=== PATIENT | female | born 1960 | race Caucasian/White ===

== ENCOUNTER 2018-08-09 15:58 | Emergency (ER) | payer BC, MEDICAID, SELFPAY ==
--- NOTE | 2018-08-09 16:19 | W.ED.GENAD ---
Discharge Plan Disposition Patient Disposition: HOME Condition: Stable Discharge Details Chief Complaint: RespSymp Clinical Impression: CAP (community acquired pneumonia), Lung nodule Primary Care Provider: Deedee Gonzalez ED Provider: Aditya Guerra Home Meds and New Rx's Prescriptions: New levofloxacin 750 mg tablet 750 mg PO DAILY Qty: 6 RF: 0 Continue epinephrine 0.3 MG/0.3 ML auto-injector 0.3 mg IM ONCE Qty: 2 RF: 1 ascorbic acid (vitamin C) [Vitamin C] 500 MG tablet 500 mg PO DAILY Qty: 100 RF: 3 omega 5-rig-yir-fish oil [Fish Oil] 1,000 MG capsule 1,000 mg PO DAILY Qty: 100 RF: 3 Discharge Instructions Instructions: Community Acquired Pneumonia (ED) Additional Instructions: your xray showed lung nodules. You need to follow up with your primary care provider as they will need to order further imaging in the next year or so to make sure these aren't enlarging if you have worsening shortness of breath or severe weakness return to the emergency department Stand Alone Forms: Work Release Discharge Data Discharge Physician: Aditya Guerra Medical Decision Making 57 yo female who denies chronic med problems, who comes in with cough for about 13 days. Denies fevers or recent travel. She has had a runny nose as well. Has clear lungs on exam and appears well systemically so doubt pna but given length of time with cough will obtain xray to eval for pna. could also be post nasal drip vs bronchitis pt's xray shows small retrocardiac opacity and also lung nodules. Will start abx for possible pna and also advised she need sto f/u with pcp for f/u on nodule Differential Diagnosis uri, post nasal drip, pna Imaging Data Radiologic Study: Imaging: X-Ray My impression: retrocardiac opacity Radiologist's impression: retrocardiac opacity, lung nodules HPI General Mode of arrival: ambulatory. Date/Time Provider Initiated Documentation: 08/09/18 16:19. Limitations to Documentation: no limitations. Information obtained by: patient. History of Present Illness 57 year old F presents to the emergency department with the chief complaint of cough, described as moderate, with intensity rated at 4. Patient started experiencing this day(s) (13) and it has been constant. No exacerbating factors reported . Patient did receive the following treatments prior to arrival, none Related Data Home Medications Medication Instructions Recorded Confirmed ascorbic acid (vitamin C) [Vitamin 500 mg PO DAILY #100 tab 03/05/18 08/09/18 C] epinephrine 0.3 mg IM ONCE #2 pen 03/05/18 08/09/18 omega 4-ehm-ivj-fish oil [Fish Oil] 1,000 mg PO DAILY #100 cap 03/05/18 08/09/18 levofloxacin 750 mg PO DAILY #6 tab 08/09/18 Previous Rx's Medication Instructions Recorded ascorbic acid (vitamin C) [Vitamin 500 mg PO DAILY #100 tab 03/05/18 C] omega 8-mpo-naq-fish oil [Fish Oil] 1,000 mg PO DAILY #100 cap 03/05/18 levofloxacin 750 mg PO DAILY #6 tab 08/09/18 Allergies Allergy/AdvReac Type Severity Reaction Status Date / Time tree nut Allergy Severe Anaphylaxsi Unverified 08/09/18 16:29 s codeine AdvReac GI problems Unverified 08/09/18 16:29 cold Allergy Severe Anaphylaxsi Uncoded 08/09/18 16:29 s Review of Systems Review of Systems All systems reviewed & are unremarkable except as noted in HPI and below Constitutional Denies chills, Denies fever(s) and Denies weakness ENT Denies change in voice Cardiovascular Denies chest pain and Denies dyspnea Respiratory Denies dyspnea Gastrointestinal Denies abdominal pain, Denies nausea and Denies vomiting Genitourinary Denies dysuria Integumentary/Breasts Denies rash Neurologic Denies weakness Psychiatric Denies depression Endocrine Denies cold intolerance and Denies heat intolerance Allergic/Immunologic Reports urticaria PFSH Family History Materal Grandfather Alcohol abuse Myocardial infarction Sister Hyperlipidemia Medical History Kidney stones Social History Smoking/Tobacco Use Status: Former Tobacco Use Surgical History Appendectomy Breast Implants Colonoscopy - MAC (01/22/18) Discectomy L spine ? level EGD w/ BX (04/27/16) Left leg saphenous vein ablation (01/29/16) Tonsillectomy and adenoidectomy Exam Const General: no acute distress Orientation: alert [facility] Head: normal to inspection Ears: external ears normal General nose exam: external nose normal Mouth: moist mucous membranes Eyes General: appearance normal, both eyes and all related structures Neck Neck: normal visual inspection Resp Effort & Inspection: normal respiratory effort and able to speak in complete sentences Cardio Rate: regular rate Skin General skin exam: no rashes or lesions noted Neuro General: alert and oriented x3 Extrem General: normal to inspection Psych Mental Status: mental status grossly normal
[2018-08-09 16:25] VITALS: BP 118/83; PULSE 85; RESP 16; TEMP 37; O2SAT 98
--- NOTE | 2018-08-09 16:30 | DI.RAD_ITS ---
SYMPTOM/DIAGNOSIS: COUGH PA AND LATERAL CHEST: Comparison is made with 11/29/17. The cardiac and mediastinal contours have a normal appearance. A tiny nodule again projects over the left fifth rib and could represent a bone island or calcified nodule. The lungs are otherwise clear. IMPRESSION: No acute abnormality.
[2018-08-09 16:40] LABS: Tricyclic Antidepressants Negative (Negative)
[2018-08-09 16:41] LABS: *AMPHETAMINES SCREEN URINE Negative (Negative); *BARBITURATES SCREEN URINE Negative (Negative); *BENZODIAZEPINES SCREEN URINE Negative (Negative); Cannabinoids THC Negative (Negative); Cocaine Screen,Urine Negative (Negative); METHADONE URINE SCREEN Negative (Negative); OPIATES URINE SCREEN Negative (Negative)
[2018-08-09 17:10] LABS: Bilirubin Negative (Negative); Blood Trace-intact (Negative); Clarity Clear; Glucose Negative (Negative); Ketones Negative (Negative); Leukocyte Esterase Negative (Negative); Nitrite Negative (Negative); Specific Gravity 1.025 (1.005-1.025); Urobilinogen 0.2 EU/dL (Up TO 0.2); pH 5.5 (5-8)
[2018-08-09 17:16] LABS: Bacteria Moderate HPF (Negative); C & S Indicated? No/Sq. Contamination; Casts Negative LPF (Negative); Crystals Negative HPF (Negative); Epithelial Cells Moderate HPF (Negative); Mucus Negative (Negative); WBC 0-2 HPF (0-5)
[2018-08-09] MEDS: LEVOFLOXACIN 500 MG, LEVOFLOXACIN 250 MG 750 MG PO (17:20)
== END 2018-08-09 17:32 | disposition home or self-care (01) ==
PROVIDERS: Emergency Provider Emergency Medicine; PCP Nurse Practitioner
DX: J18.9 Pneumonia, unspecified organism (principal); R91.1 Solitary pulmonary nodule
CPT/HCPCS: 80307; 99283; 71046; 81003; 81015

== ENCOUNTER 2018-08-13 15:53 | Emergency (ER) | payer BC, MEDICAID, SELFPAY ==
[2018-08-13 16:59] VITALS: BP 142/100; PULSE 106; RESP 20; TEMP 36.6; O2SAT 96
--- NOTE | 2018-08-13 17:47 | DI.CT_ITS ---
SYMPTOMS/DIAGNOSIS: SHORTNESS OF BREATH PE CTA: CT angiography was performed with multi slice acquisition and multi planar and 3D reconstruction. The study was carried out with an injection of 100 cc of Omnipaque 350. There is no evidence of pulmonary embolic disease. Patchy ground-glass opacities are noted in the medial left lower lobe and could represent an acute pneumonia in the appropriate clinical setting. There is no pleural effusion. There is no pneumothorax. The heart is unremarkable. No acute bony abnormality is seen. The soft tissues are unremarkable. A 4 cm cyst is incidentally noted in the right hepatic lobe. SUMMARY: Multifocal patchy ground-glass densities within the medial left lower lobe, which likely represent an acute pneumonitis. No evidence of pulmonary embolic disease.
[2018-08-13] MEDS: Benzonatate 100 MG CAP 200 MG PO ×2 (18:02→20:56)
[2018-08-13 18:04] VITALS: RESP 4
[2018-08-13 18:04] LABS: Abs Immature Grans 0.01 k/cumm (0.0-0.09); Absolute Basophil Count 0.03 k/cumm (0.0-0.2); Absolute Eosinophil Count 0.17 k/cumm (0.0-0.7); Absolute Lymphocyte Count 1.94 k/cumm (1.2-3.4); Absolute Monocyte Count 0.45 k/cumm (0.11-0.7); Absolute Neutrophil Count 3.55 k/cumm (1.2-6.7); Basophils % 0.5; Eosinophils % 2.8; HCT 43.9 % (36.0-46.0); HGB 14.7 g/dL (12.0-15.5); Immature Grans % 0.2; Lymphocytes % 31.5; Mean Corp. HGB Concentration 33.5 g/dL (32.0-36.0); Mean Corpuscular Hemoglobin 30.9 pg (27.0-33.0); Mean Corpuscular Volume 92.4 fL (80-95); Mean Platelet Volume 10.7 fL (8.0-11.0); Monocytes % 7.3; Neutrophils % 57.7; Platelet Count 179 x1000/uL (130-400); RBC 4.75 m/cumm (4.00-5.20); RBC Distribution Width 13.2 % (11.7-14.6); White Blood Cell Count 6.15 k/cumm (4.4-10.8)
[2018-08-13] MEDS: Albuterol/Ipratropium 3 ML UPD VIAL UPD ×2 (18:04→20:36)
[2018-08-13 18:17] LABS: ALT 23 U/L (12-78); AST 14 U/L (15-37); Albumin 3.9 g/dL (3.4-5.0); Alkaline Phosphatase 71 U/L (46-116); Anion Gap 10.3 mmol/L (3-11); BUN 17 mg/dL (7-18); Bilirubin, Total 0.4 mg/dL (0.2-1.0); CO2 28.7 mmol/L (21.0-32.0); CREATININE 0.84 mg/dL (0.55-1.02); Calcium 9.4 mg/dL (8.5-10.1); Chloride 102 mmol/L (98-107); Glucose 103 mg/dL (70-100); Potassium 3.8 mmol/L (3.5-5.1); Sodium 141 mmol/L (136-145); Total Protein 7.8 g/dL (6.4-8.2)
--- NOTE | 2018-08-13 19:21 | DI.VRAD_ITS ---
EXAM: CT Angiography Chest With Intravenous Contrast CLINICAL HISTORY: 57 years old, female; Signs and symptoms; Cough and shortness of breath; Patient HX: Cough, SOB TECHNIQUE: Axial computed tomographic angiography images of the chest with intravenous contrast using pulmonary embolism protocol. MIP reconstructed images were created and reviewed. Coronal and sagittal reformatted images were created and reviewed. COMPARISON: SC XR CHEST 2V PA LATERAL 08/09/2018 4:23 PM FINDINGS: Pulmonary arteries: Unremarkable. No pulmonary embolism. Aorta: No acute findings. No thoracic aortic aneurysm. Lungs: Multifocal patchy and groundglass opacities within the medial left lower lobe consistent with pneumonia in the proper clinical setting. Mild left lower lobe bronchial wall thickening. Pleural space: Unremarkable. No significant effusion. No pneumothorax. Heart: Unremarkable. No cardiomegaly. No significant pericardial effusion. No evidence of RV dysfunction. Bones/joints: No acute fracture. No dislocation. Soft tissues: Unremarkable. Lymph nodes: Unremarkable. No enlarged lymph nodes. Liver: Cyst measuring 4 cm within the right hepatic lobe. IMPRESSION: Multifocal patchy and groundglass opacities within the medial left lower lobe consistent with pneumonia in the proper clinical setting. Dictated and Authenticated by: Juvenal Collins MD. Ordering:ZULMA REED MD
--- NOTE | 2018-08-13 20:25 | W.ED.GENAD ---
Discharge Plan Disposition Patient Disposition: HOME Condition: Stable Discharge Details Chief Complaint: RespSymp Clinical Impression: Pneumonia Primary Care Provider: Deedee Gonzalez ED Provider: Josef Hubbard Home Meds and New Rx's Prescriptions: New benzonatate 200 mg capsule 200 mg PO Q8H PRN PRN (Reason: cough) Qty: 30 RF: 0 prednisone 20 mg tablet 40 mg PO DAILY Qty: 8 RF: 0 doxycycline hyclate 100 mg tablet 100 mg PO BID Qty: 20 RF: 0 Continue epinephrine 0.3 MG/0.3 ML auto-injector 0.3 mg IM ONCE Qty: 2 RF: 1 ascorbic acid (vitamin C) [Vitamin C] 500 MG tablet 500 mg PO DAILY Qty: 100 RF: 3 omega 7-qxd-sbq-fish oil [Fish Oil] 1,000 MG capsule 1,000 mg PO DAILY Qty: 100 RF: 3 Discontinued levofloxacin 750 mg tablet 750 mg PO DAILY Qty: 6 RF: 0 Discharge Instructions Instructions: Pneumonia (ED) Additional Instructions: Please start antibiotics/doxycycline if not improving on steroids within 48 hours. Return immediately to the emergency department for any new or worsening symptoms otherwise follow-up with your primary care provider in 5 for reassessment. Stand Alone Forms: Work Release Referrals: Deedee Gonzalez, [employer] [Primary Care Provider] - 5 days (For reassessment) Discharge Data Discharge Date/Time-TO BE ENTERED AT DEPARTURE: 08/13/18 21:01 Medical Decision Making Patient presenting to the emergency department for chief complaint of cough for the last 2 weeks. Patient was seen in the emergency department 5 days ago and started on Levaquin for diagnosis of pneumonia. Of notation on review of records patient had some nodules also noted on x-ray that patient was recommended to follow-up with primary care for. Patient finished Levaquin today and has not had any signs of improvement. Physical exam reveals diffuse wheezing throughout all lung bennett with some diminished lower lung sounds. Given no improvement of symptoms in nodular finding on x-ray do feel that labs and CT imaging of the chest is warranted. Pending results patient given DuoNeb and Tessalon Perle to help with presenting symptoms. Vital signs are stable with patient being afebrile and not hypoxic but mildly tachycardic. Patient does have a dry nonproductive cough heard during examination Review of labs that show no leukocyte and otherwise nondiagnostic labs. CT imaging showed multifocal patchy groundglass opacities consistent with pneumonia. Patient reassessed after review of labs and imaging and she states that she does feel somewhat improved and that her cough has also gotten better after treatment. Lungs were reassessed and still showed diffuse wheezing so patient given another DuoNeb treatment, IV Solu-Medrol 125. Feel that patient may be having continued post pneumonia coughing spells but given that she has been on Levaquin for 5 days and has no loose leukocytosis and continued findings consistent with pneumonia I do not feel that patient immediately needs antibiotics but that may benefit from some steroids. Given though she is still symptomatic patient was prescribed doxycycline to begin if not improving over the next 24-48 hours and encouraged to return immediately for any new or worsening signs or symptoms. After discussion of diagnosis and plan of care patient has no further needs, questions, or concerns and states clear understanding to return to the emergency department for any worsening symptoms. Medical Records Medical records reviewed: Yes I reviewed the patient's medical records. Lab Data Lab results reviewed: Yes I reviewed the patient's lab results. HPI General Mode of arrival: ambulatory. Date/Time Provider Initiated Documentation: 08/13/18 17:30. Limitations to Documentation: no limitations. Information obtained by: patient. History of Present Illness 57 year old F presents to the emergency department with the chief complaint of cough, described as severe, with intensity rated at 7. and is localized to the head and chest. Patient started experiencing this week(s) (2) and it has been constant. No relieving factors improve symptom(s), No exacerbating factors reported . Patient did receive the following treatments prior to arrival, other (Finished levofloxacin today) Related Data Home Medications Medication Instructions Recorded Confirmed ascorbic acid (vitamin C) [Vitamin 500 mg PO DAILY #100 tab 03/05/18 08/13/18 C] epinephrine 0.3 mg IM ONCE #2 pen 03/05/18 08/13/18 omega 5-uyp-zgv-fish oil [Fish Oil] 1,000 mg PO DAILY #100 cap 03/05/18 08/13/18 benzonatate 200 mg PO Q8H PRN PRN #30 cap 08/13/18 doxycycline hyclate 100 mg PO BID #20 tab 08/13/18 prednisone 40 mg PO DAILY #8 tab 10/15/18 Previous Rx's Medication Instructions Recorded ascorbic acid (vitamin C) [Vitamin 500 mg PO DAILY #100 tab 03/05/18 C] omega 9-khz-bvu-fish oil [Fish Oil] 1,000 mg PO DAILY #100 cap 03/05/18 benzonatate 200 mg PO Q8H PRN PRN #30 cap 08/13/18 doxycycline hyclate 100 mg PO BID #20 tab 08/13/18 prednisone 40 mg PO DAILY #8 tab 08/13/18 Allergies Allergy/AdvReac Type Severity Reaction Status Date / Time tree nut Allergy Severe Anaphylaxsi Unverified 08/13/18 17:06 s codeine AdvReac GI problems Unverified 08/13/18 17:06 cold Allergy Severe Anaphylaxsi Uncoded 08/13/18 17:06 s General Stated Complaint: RespSymp BLAYNE: 4 Review of Systems Constitutional Denies body ache(s), Denies chills and Denies fever(s) Cardiovascular Denies chest pain, Denies diaphoresis, Denies syncope, Denies irregular heart rhythm, Reports dyspnea and Reports dyspnea on exertion Respiratory Reports chest congestion, Reports cough, Denies hemoptysis, Reports pain with cough, Reports dyspnea, Reports dyspnea on exertion and Reports wheezing Gastrointestinal Denies abdominal pain, Denies nausea and Denies vomiting Integumentary/Breasts Denies rash Neurologic Denies confusion, Denies syncope and Denies sensory deficit Psychiatric Denies confusion Allergic/Immunologic Reports wheezing PFSH Family History Materal Grandfather Alcohol abuse Myocardial infarction Sister Hyperlipidemia Medical History Kidney stones Social History Smoking/Tobacco Use Status: Former Tobacco Use Surgical History Appendectomy Breast Implants Colonoscopy - MAC (01/22/18) Discectomy L spine ? level EGD w/ BX (04/27/16) Left leg saphenous vein ablation (01/29/16) Tonsillectomy and adenoidectomy Exam Const General: cooperative, no acute distress and not ill appearing Orientation: alert, awake and oriented x3 HENMT Ears: hearing grossly normal bilaterally and TM's normal bilaterally General nose exam: external nose normal Mouth: moist mucous membranes Throat: posterior oropharynx normal Resp Effort & Inspection: normal respiratory effort, able to speak in complete sentences, audible wheezes, cough Quality of cough: dry and no respiratory distress Auscultation: wheezes scattered wheezes Cardio Rate: regular rate Rhythm: regular rhythm Heart Sounds: S1 normal and S2 normal Skin General skin exam: no rashes or lesions noted Neuro General: alert, awake, oriented x3, moves all extremities and no focal motor deficits Sensory Exam: no sensory deficits noted Course Vital Signs Temperature 36.6 C 08/13/18 16:59 Pulse 106 H 08/13/18 16:59 Respiratory Rate 20 08/13/18 16:59 Blood Pressure 142/100 H 08/13/18 16:59 Pulse Oximetry 96 08/13/18 16:59 Temperature 36.6 C 08/13/18 16:59 Temperature Source Temporal Artery Scan 08/13/18 16:59 Pulse 106 H 08/13/18 16:59 Respiratory Rate 20 08/13/18 16:59 Respiratory Effort 08/13/18 17:08 Respiratory Depth Normal 08/13/18 17:08 Blood Pressure 142/100 H 08/13/18 16:59 Pulse Oximetry 96 08/13/18 16:59 Oxygen Delivery Method Room Air 08/13/18 16:59 Oxygen Flow Rate 0 08/13/18 16:59 Lab/Test Results Lab/Test Results: Laboratory Tests Range/Units 08/13/18 08/13/18 17:53 17:53 WBC (4.4-10.8) k/cumm 6.15 RBC (4.00-5.20) m/cumm 4.75 Hgb (12.0-15.5) g/dL 14.7 Hct (36.0-46.0) % 43.9 MCV (80-95) fL 92.4 MCH (27.0-33.0) pg 30.9 MCHC (32.0-36.0) g/dL 33.5 RDW (11.7-14.6) % 13.2 Plt Count (130-400) x1000/uL 179 MPV (8.0-11.0) fL 10.7 Immature Gran % 0.2 Neutrophils % 57.7 Lymphocytes % 31.5 Monocytes % 7.3 Eosinophils % 2.8 Basophils % 0.5 Absolute Neutrophils (1.2-6.7) k/cumm 3.55 Absolute Lymphocytes (1.2-3.4) k/cumm 1.94 Absolute Monocytes (0.11-0.7) k/cumm 0.45 Absolute Eosinophils (0.0-0.7) k/cumm 0.17 Absolute Basophils (0.0-0.2) k/cumm 0.03 Sodium (136-145) mmol/L 141 Potassium (3.5-5.1) mmol/L 3.8 Chloride (98-107) mmol/L 102 Carbon Dioxide (21.0-32.0) mmol/L 28.7 Anion Gap (3-11) mmol/L 10.3 BUN (7-18) mg/dL 17 Creatinine (0.55-1.02) mg/dL 0.84 Estimated GFR/1.73 m2 (mL/min/1.73m2) >= 60.00 Glucose (70-100) mg/dL 103 H Calcium (8.5-10.1) mg/dL 9.4 Total Bilirubin (0.2-1.0) mg/dL 0.4 AST (15-37) U/L 14 L ALT (12-78) U/L 23 Alkaline Phosphatase (46-116) U/L 71 Total Protein (6.4-8.2) g/dL 7.8 Albumin (3.4-5.0) g/dL 3.9
[2018-08-13] MEDS: methylPREDNISolone SUCC 125 MG VIAL IVP (20:36)
== END 2018-08-13 21:01 | disposition home or self-care (01) ==
PROVIDERS: Emergency Provider Nurse Practitioner Family; PCP Nurse Practitioner
DX: J18.9 Pneumonia, unspecified organism (principal); Z87.891 Personal history of nicotine dependence
CPT/HCPCS: 36415; 71275; 80053; 94640; 96374; 99284; 85025; J2930; J7620

== ENCOUNTER 2018-12-18 07:07 | Outpatient (CLI) | payer BC, MEDICAID, SELFPAY ==
[2018-12-18 09:17] LABS: Cholesterol 180 mg/dL (50-200); HDL Cholesterol 57 mg/dL (40-60); LDL CHOLESTEROL 98 mg/dL (<100); TSH (W/Ref FT4) 2.66 uIU/mL (0.358-3.74); Triglyceride 120 mg/dL (30-150)
[2018-12-20 05:31] LABS: Vitamin D 25 Total 39.2 ng/ml (30-100)
== END 2018-12-18 07:27 ==
PROVIDERS: PCP Nurse Practitioner; Visit Provider Nurse Practitioner
DX: E55.9 Vitamin D deficiency, unspecified (principal); Z13.220 Encounter for screening for lipoid disorders; R63.5 Abnormal weight gain; F32.9 Major depressive disorder, single episode, unspecified; F41.9 Anxiety disorder, unspecified
CPT/HCPCS: 36415; 80061; 82306; 83721; 84443

== ENCOUNTER 2019-05-09 15:31 | Outpatient (REF) | payer BC, MEDICAID, SELFPAY | END 2019-05-09 15:51 | LOC: LBN 15:31 | PROVIDERS: PCP Nurse Practitioner; Visit Provider Nurse Practitioner | DX: R82.90 Unspecified abnormal findings in urine (principal) | CPT/HCPCS: 87086 ==

== ENCOUNTER 2019-08-12 15:53 | Outpatient (REF) | payer BC, MEDICAID, SELFPAY | END 2019-08-12 16:13 | LOC: LBN 15:53 | PROVIDERS: PCP Nurse Practitioner; Visit Provider Nurse Practitioner | DX: N39.0 Urinary tract infection, site not specified (principal); R31.0 Gross hematuria; R35.0 Frequency of micturition | CPT/HCPCS: 87077; 87086; 87186 ==

== ENCOUNTER 2019-09-03 06:24 | Inpatient (IN) | payer BC, MEDICAID, SELFPAY ==
[2019-09-03] VITALS (36 sets, daily range): BP systolic 85–103; BP diastolic 43–64; PULSE 79–105; RESP 1–27; TEMP 36.7–37.6; O2SAT 89–95
--- NOTE | 2019-09-03 06:43 | ED.GENADUL_ITS ---
Discharge Plan Disposition Patient Disposition: [facility] INPATIENT Condition: Stable Discharge Details Chief Complaint: Chest Pain Clinical Impression: URI (upper respiratory infection) Admit Date/Time: 09/05/19 10:14 Admit Provider: Milagros Dumont Attending Provider: Milagros Dumont Primary Care Provider: Deedee Gonzalez ED Provider: Tu Abdullahi Discharge Data Discharge Date/Time-TO BE ENTERED AT DEPARTURE: 09/03/19 12:52 Medical Decision Making <Goran Mckeon MD - Last Filed: 09/09/19 20:09> Patient presenting with pleuritic chest pain with associated intermittent fevers and cough for 2 weeks. Low O2 saturations with mild tachycardia and initial hypotension. Most likely pneumonia in nature. Consider PE. EKG with nonspecific ST changes noted. IV established and laboratory studies ordered. Fluids started. Chest x-ray done. Patient laboratory studies with normal white count. Lactic acid is only 2.4. Chemistries are reasonable. Very mild hypokalemia and hypomagnesemia. Troponin negative. Chest x-ray with questionable retrocardiac infiltrate. This blood pressure better with fluids. Continue with second liter of LR. Dose with IV ceftriaxone. D-dimer is positive. Chest x-ray not definitive. Will obtain CTA chest to rule out PE. Patient signed over to Dr. Abdullahi. ECG Data Attestation: I personally reviewed and interpreted this ECG (s) as follows: Prior ECG tracings: not available for review Interpretation: Sinus tachycardia rate 98. Normal axis and intervals. Nonspecific ST changes and slight depression laterally. <Tu Abdullahi MD - Last Filed: 09/03/19 12:48> Received signout from Dr. Mckeon. Please see his note regarding initial presentation, history of present illness, exam and plan of care. Patient had also noted hives that began this morning. They were antecedent to the administration of antibiotic. I did give her both Benadryl and acetaminophen for body ache and headache. Chest x-ray as noted with interstitial markings increased. CT scan does not show PE; CT does demonstrate bilateral pleural effusions and increased interstitial markings, suspicious for mild CHF. Her BNP is unremarkable. Influenza screening negative. Still has borderline low blood pressure, ongoing difficulty breathing with oxygenation 92% on room air. Likely she has a viral process with pleurisy, but given her findings, including elevated lactic acidosis, I do feel it is reasonab le to admit for observation. Discussed with Dr. Dumont. Lab Data Lab results reviewed: Yes I reviewed the patient's lab results. Labs: Laboratory Results - last 24 hr 09/03/19 09/03/19 09/03/19 06:47 06:47 06:47 WBC 8.19 RBC 4.44 Hgb 13.7 Hct 42.2 MCV 95.0 MCH 30.9 MCHC 32.5 RDW 13.2 Plt Count 185 MPV 9.4 Immature Gran % 0.9 Neutrophils % 93.6 Lymphocytes % 1.3 Monocytes % 2.3 Eosinophils % 1.8 Basophils % 0.1 Absolute Neutrophils 7.66 H Absolute Lymphocytes 0.11 L Absolute Monocytes 0.19 Absolute Eosinophils 0.15 Absolute Basophils 0.01 PT 9.7 INR 1.0 APTT 22.1 D-Dimer 4367 H Sodium 145 Potassium 3.3 L Chloride 107 Carbon Dioxide 28.8 Anion Gap 9.2 BUN 24 H Creatinine 1.01 Estimated GFR/1.73 m2 56.50 Glucose 128 H Lactate Calcium 8.8 Magnesium 1.7 L Total Bilirubin 0.9 AST 30 ALT 45 Alkaline Phosphatase 47 Troponin I < 0.05 Total Protein 6.7 Albumin 3.2 L 09/03/19 06:47 WBC RBC Hgb Hct MCV MCH MCHC RDW Plt Count MPV Immature Gran % Neutrophils % Lymphocytes % Monocytes % Eosinophils % Basophils % Absolute Neutrophils Absolute Lymphocytes Absolute Monocytes Absolute Eosinophils Absolute Basophils PT INR APTT D-Dimer Sodium Potassium Chloride Carbon Dioxide Anion Gap BUN Creatinine Estimated GFR/1.73 m2 Glucose Lactate 2.4 H* Calcium Magnesium Total Bilirubin AST ALT Alkaline Phosphatase Troponin I Total Protein Albumin HPI <Goran Mckeon MD - Last Filed: 09/09/19 20:09> General Mode of arrival: ambulatory . Date/Time Provider Initiated Documentation: 09/03/19 06:41 . Limitations to Documentation: no limitations . Information obtained by: patient, RN notes reviewed and old records reviewed . HPI Narrative: Patient presents to ED with bilateral pleuritic chest and back pain. Patient reports having a cough with intermittent fevers and general feeling of being unwell for the last 2 weeks. She did see primary care who felt she had viral illness. Over the last 24 hours she has developed bilateral pleuritic pain, nausea increased cough. This morning she woke with a rash mostly on her arms, some on her legs. She is unable to take a deep breath. She feels a little short of breath. She was unable to go to work and came here for evaluation. Related Data Home Medications Medication Instructions Recorded Confirmed ascorbic acid (vitamin C) [Vitamin 500 mg PO DAILY #100 tab 03/05/18 09/03/19 C] montelukast 10 mg tablet 10 mg PO QPM #30 tab 10/16/18 09/03/19 escitalopram oxalate 10 mg tablet 10 mg PO DAILY #30 tab 11/14/18 09/03/19 cetirizine 10 mg tablet 10 mg PO BID PRN 04/25/19 09/03/19 ranitidine HCl 150 mg tablet 150 mg PO BID PRN 04/25/19 09/03/19 hydrochlorothiazide 25 mg tablet 25 mg PO DAILY PRN #20 tab 05/09/19 09/03/19 hydroxyzine HCl 10 mg tablet See Rx Instructions PO QID PRN 05/09/19 09/03/19 #100 tab omega 8-vuk-pxb-fish oil 1,000 mg 1 cap PO DAILY #100 cap 08/12/19 09/03/19 (120 mg-180 mg) capsule Lactobacillus acidophilus 1,000 mmu cells PO DAILY #30 cap 09/06/19 albuterol sulfate 2 puff IH Q4H PRN #18 gm 09/06/19 benzonatate 1 - 2 mg PO TID #30 cap 09/06/19 cefuroxime axetil 500 mg PO BID #10 tab 09/06/19 doxycycline hyclate 100 mg PO BID #11 cap 09/06/19 guaifenesin [Mucinex] 600 mg PO BID PRN PRN #20 tab 09/06/19 Previous Rx's Medication Instructions Recorded ascorbic acid (vitamin C) [Vitamin 500 mg PO DAILY #100 tab 03/05/18 C] montelukast 10 mg tablet 10 mg PO QPM #30 tab 10/16/18 escitalopram oxalate 10 mg tablet 10 mg PO DAILY #30 tab 11/14/18 hydrochlorothiazide 25 mg tablet 25 mg PO DAILY PRN #20 tab 05/09/19 hydroxyzine HCl 10 mg tablet See Rx Instructions PO QID PRN 05/09/19 #100 tab omega 9-lvt-glh-fish oil 1,000 mg 1 cap PO DAILY #100 cap 10/14/19 (120 mg-180 mg) capsule Lactobacillus acidophilus 1,000 mmu cells PO DAILY #30 cap 09/06/19 albuterol sulfate 2 puff IH Q4H PRN #18 gm 09/06/19 benzonatate 1 - 2 mg PO TID #30 cap 09/06/19 cefuroxime axetil 500 mg PO BID #10 tab 09/06/19 doxycycline hyclate 100 mg PO BID #11 cap 09/06/19 guaifenesin [Mucinex] 600 mg PO BID PRN PRN #20 tab 09/06/19 Allergies Allergy/AdvReac Type Severity Reaction Status Date / Time hornet venom Allergy Severe Verified 09/03/19 06:33 tree nut Allergy Severe Anaphylaxsi Verified 09/03/19 06:33 s codeine AdvReac Unknown GI problems Verified 09/03/19 06:33 cold Allergy Severe Anaphylaxsi Uncoded 09/03/19 06:33 s General Stated Complaint: Chest Pain BLAYNE: 2 Review of Systems <Goran Mckeon MD - Last Filed: 09/09/19 20:09> Narrative: 08/12 Review of Systems completed and is negative except as stated above in HPI (Systems reviewed: Const, Eyes, ENT, Resp, CV, GI, , MSK, Skin, Neuro) PFSH <Goran Mckeon MD - Last Filed: 09/09/19 20:09> Medical History 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) Depression (Acute 02/22/18) 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) Edema (Acute 02/22/18) Genital herpes simplex (Acute 02/22/18) GERD (gastroesophageal reflux disease) (Acute 04/27/16) History of cold urticaria (Chronic) History of tobacco use disorder (Acute 03/05/18) Kidney stones Varicose veins of both lower extremities (Acute 02/22/18) Vitamin D deficiency (Acute 02/22/18) Social History Smoking/Tobacco Use Status: Former Tobacco Use Alcohol Intake: current Alcohol Intake frequency: holidays/special occasions only Drug use: Never Substance use type: does not use current occupation: [employer] Water heater temp set <120 deg: Yes Working smoke detector in home: Yes Fire extinguisher in home: Yes Carbon monox detector in home: Yes Do you feel safe at home: Yes Do you feel safe in your relationship?: Yes Exam <Goran Mckeon MD - Last Filed: 09/09/19 20:09> Narrative Exam Narrative: Vitals: Afebrile here. Slight tachycardia and hypotension on initial arrival. Low room air pulse oximetry. Const: Obese female in NAD. HEENT: NC/AT. Normal facial exam. Eyes: Normal conjunctiva and sclera. Neck: Supple. Trachea midline. Lungs: Normal respiratory effort. Lungs with some rhonchi bilateral bases but worse on left. Cor: RRR without murmur/gallop. Good radial pulses. GI: Soft. NT/ND. No guarding or rebound. Back: No CVAT. Neuro: A+O x 3. CN grossly in tact. Good strength and no focal deficit. Ext: No C/C/E. No deformity or tenderness. Skin: Warm and dry with faint macular/lacy erythematous rash involving arms. Course <Goran Mckeon MD - Last Filed: 09/09/19 20:09> Vital Signs Vital signs: Vital Signs Temperature 98.1 F 09/03/19 06:27 Pulse 105 H 09/03/19 06:27 Respiratory Rate 18 09/03/19 06:27 Pulse Oximetry 92 L 09/03/19 06:27 Temperature 98.1 F 09/03/19 06:27 Pulse 105 H 09/03/19 06:27 Respiratory Rate 18 09/03/19 06:27 Respiratory Effort 09/03/19 06:37 Respiratory Depth Normal 09/03/19 06:37 Respiratory Pattern Normal 09/03/19 06:37 Pulse Oximetry 92 L 09/03/19 06:27 Oxygen Delivery Method Room Air 09/03/19 06:27 Oxygen Flow Rate 0 09/03/19 06:27 Pain Level 9 09/03/19 06:37 Sign Out <Goran Mckeon MD - Last Filed: 09/09/19 20:09> Sign Out Data: Sign Out Comment: Patient receiving antibiotics and fluids. CT scan ordered. Patient signed over to Dr. Abdullahi for follow-up. Last updated by Goran Mckeon MD at 09/03/19 08:31
--- NOTE | 2019-09-03 06:55 | DI.RAD_ITS ---
EXAM: XR CHEST 2V PA LATERAL INDICATION: cough, chest pain. COMPARISON: No exams were available for comparison TECHNIQUE: 2D digital imaging was performed. FINDINGS: The heart size is normal. The aorta is mildly tortuous. There are mildly increased interstitial mar kings. No focal infiltrate is seen. There is minimal blunting of the costophrenic angles. There is mild vascular prominence and mildly increased interstitial markings could indicate mild pulmonary ed kayla. The spine shows mild degenerative changes. IMPRESSION: Question of mild CHF.
[2019-09-03 07:08] LABS: Abs Immature Grans 0.07 k/cumm (0.0-0.09); Absolute Basophil Count 0.01 k/cumm (0.0-0.2); Absolute Eosinophil Count 0.15 k/cumm (0.0-0.7); Absolute Lymphocyte Count 0.11 k/cumm (1.2-3.4); Absolute Monocyte Count 0.19 k/cumm (0.11-0.7); Absolute Neutrophil Count 7.66 k/cumm (1.2-6.7); Basophils % 0.1; Eosinophils % 1.8; HCT 42.2 % (36.0-46.0); HGB 13.7 g/dL (12.0-15.5); Immature Grans % 0.9; Lymphocytes % 1.3; Mean Corp. HGB Concentration 32.5 g/dL (32.0-36.0); Mean Corpuscular Hemoglobin 30.9 pg (27.0-33.0); Mean Platelet Volume 9.4 fL (8.0-11.0); Monocytes % 2.3; Neutrophils % 93.6; Platelet Count 185 x1000/uL (130-400); RBC 4.44 m/cumm (4.00-5.20); RBC Distribution Width 13.2 % (11.7-14.6); White Blood Cell Count 8.19 k/cumm (4.4-10.8)
[2019-09-03] MEDS: Lactated Ringers 1,000 ML 1000 ML IV ×2 (07:10→10:04)
[2019-09-03] MEDS: Ketorolac 15 MG/ML VIAL IVP (07:10)
[2019-09-03 07:12] LABS: Lactate 2.4 mmol/L (0.6-1.4)
[2019-09-03 07:25] LABS: PTT Activated 22.1 sec (21.0-31.4); Prothrombin Time 9.7 sec (9.3-11.0)
[2019-09-03 07:29] LABS: ALT 45 U/L (14-59); AST 30 U/L (15-37); Albumin 3.2 g/dL (3.4-5.0); Alkaline Phosphatase 47 U/L (46-116); Anion Gap 9.2 mmol/L (3-11); BUN 24 mg/dL (7-18); Bilirubin, Total 0.9 mg/dL (0.2-1.0); CO2 28.8 mmol/L (21.0-32.0); CREATININE 1.01 mg/dL (0.55-1.02); Calcium 8.8 mg/dL (8.5-10.1); Chloride 107 mmol/L (98-107); Glucose 128 mg/dL (70-100); Magnesium 1.7 mg/dL (1.8-2.4); Potassium 3.3 mmol/L (3.5-5.1); Sodium 145 mmol/L (136-145); Total Protein 6.7 g/dL (6.4-8.2)
[2019-09-03 07:40] LABS: D-Dimer 4367 ng/mlFEU (<500)
[2019-09-03 07:44] LABS: Troponin I < 0.05 ng/mL (0.00-0.06)
--- NOTE | 2019-09-03 07:57 | DI.VRAD_ITS ---
PROCEDURE INFORMATION: Exam: XR Chest, 2 Views Exam date and time: 09/03/2019 7:36 AM Clinical history: 59 years old, female; Cough TECHNIQUE: Imaging protocol: XR of the chest Views: 2 views. COMPARISON: CR CHEST 2 VIEWS PA,LAT 11/29/2017 9:24 AM FINDINGS: Lungs: Nonspecific diffuse interstitial prominence. Pleural space: Unremarkable. No pleural effusion. No pneumothorax. Heart/Mediastinum: Unremarkable. No cardiomegaly. Bones/joints: Unremarkable. IMPRESSION: Nonspecific diffuse interstitial prominence. Dictated and Authenticated by: Donta Rouse MD. Ordering:MARYLU Zimmer MD
[2019-09-03] MEDS: cefTRIAXone 1 GM/50 ML BAG IVPB (08:06)
--- NOTE | 2019-09-03 08:40 | DI.CT_ITS ---
EXAM: CT CHEST PE CTA CLINICAL HISTORY: pleuritic chest pain; low pulse ox; + d dimer TECHNIQUE: 100 cc Omnipaque [address] angiography was performed with multi-slice acquisition and multi-planar and/or 3D reconstruc tions. COMPARISON: CT chest PE CTA from 08/13/2018 FINDINGS: No pulmonary emboli or aortic dissection is seen. There is respiratory motion. There are dependent changes at the lung bases. There are increased interstitial markings and intralobular septal thicke david and tiny bilateral pleural effusions. There is mild left ventricular and left atrial enlargemen t. No focal pneumonia is seen. There are bilateral breast implants. A cyst is again noted in the p osterior aspect of the liver. There is an area of scarring at the posterior left upper pole of the l eft kidney. IMPRESSION: Small bilateral pleural effusions and increased interstitial markings, suspicious for mild CHF. Ther e is no evidence of pulmonary emboli, aortic dissection or focal pneumonia.
[2019-09-03] MEDS: Omnipaque 350 MG/ML 100 ML BTL IJ (08:43)
[2019-09-03] MEDS: Acetaminophen 500 MG TAB 975 MG PO (08:55)
[2019-09-03] MEDS: diphenhydrAMINE 50 MG/ML VIAL 25 MG IVP (08:55)
[2019-09-03 09:46] LABS: NT-proBNP 277 pg/mL
[2019-09-03] MEDS: Lactated Ringers 1,000 ML 150 ML IV (10:01)
[2019-09-03] MEDS: Doxycycline Hyclate 100 MG CAP PO (11:01)
--- NOTE | 2019-09-03 11:24 | NUR.NOTE ---
LR ordered at 1009 was not given. Patient has only received one LR 1000mL bolus and one LR at 150 mL/hr.
[2019-09-03 12:10] LABS: Procalcitonin 4.9 ng/mL
[2019-09-03] MEDS: Acetaminophen 325 MG TAB PO ×2 (13:29→17:37)
[2019-09-03] MEDS: Enoxaparin 40 MG/0.4 ML SYR SC (13:30)
[2019-09-03] MEDS: Benzonatate 100 MG CAP PO ×2 (13:30→19:31)
[2019-09-03] MEDS: POTASSIUM CHLORIDE/0.9% NACL 1,000 ML 75 MEQ IV (13:31)
[2019-09-03] MEDS: Albuterol 2.5 MG/3 ML INH SOLN VIAL UPD (15:36)
[2019-09-03] MEDS: MAGNESIUM SULFATE 2 GM/50 ML BAG IVPB (16:13)
[2019-09-03] MEDS: guaiFENesin 600 MG TABCR PO ×2 (16:20→19:31)
--- NOTE | 2019-09-03 17:08 | HPE_ITS ---
Date of service: 09/03/19 Time of Service: 17:08 Assessment and Plan Assessment and plan (1) Bronchitis: Status: Acute Assessment and plan: Likely with bacterial component in the setting of elevated lactate to 2.4 and procalcitonin of 4.9. Appears dehydrated on exam, continue IV fluids with potassium, ceftraixone and doxycyline. Consider viral process in the setting of fever and skin rash as well. Repeat procalcitonin and lactate in the morning. (2) Fever: Status: Acute Assessment and plan: Reports fever at home. Currently afebrile. Consider viral process versus bacterial process. Treat as above. Blood cultures are pending. Repeat labs in the morning. (3) Skin rash: Status: Acute Assessment and plan: Improved with Benadryl. Has history of cold urticaria, followed at [facility]. PRN Benadryl for hives. (4) Depression: Status: Acute Assessment and plan: Continue Lexapro. Hydroxyzine as needed for anxiety. (5) History of cold urticaria: Status: Chronic Assessment and plan: Followed at [facility]. Recommends cetirizine twice daily as needed, ranitidine 150 mg twice daily as needed if hives persist with cetirizine. (6) Hypokalemia: Status: Resolved Assessment and plan: Replete and monitor. Currently on IV fluids with potassium. (7) Hypomagnesemia: Status: Resolved Assessment and plan: Replete and monitor. (8) Chest pain: Status: Acute Assessment and plan: Sounds pleuritic by history. Initial troponin negative in the emergency department. Repeat troponin, if negative, no need to continue to trend. (9) DVT prophylaxis: Status: Acute Assessment and plan: Subcutaneous Lovenox. (10) Discharge planning issues: Status: Acute Assessment and plan: She is a full code. This case was discussed with Dr. Dumont who is in agreement. History of Present Illness History of Present Illness Chief Complaint: cough, shortness of breath, fatigue, malaise. Narrative: Mirtha Chang is a very pleasant 59 year old female with a history of Scleroderma, cold urticaria, GERD, depression, anxiety and remote smoking history who presented to the ED today with reports of a 2-week history of cough, pleuritic chest pain, intermittent fevers, fatigue and malaise. She also reported nausea, vomiting, diarrhea and skin rash. In the emergency department, her labs revealed a normal white blood cell count, an elevated lactic acid at 2.4, mild hypokalemia and hypomagnesemia, elevated d-dimer at 4367. Her EKG showed sinus rhythm with a rate or 98, Normal axis and intervals. Nonspecific ST changes and slight depression laterally. Her troponin was negative x1. She was initially hypotensive and tachycardic. Her oxygen saturation was mildly low at 92% on room air. She had a chest x-ray which revealed question of mild CHF, CT chest revealed small bilateral pleural effusions and increased interstitial markings, suspicious for mild CHF. No evidence of pulmonary emboli aortic dissection or focal pneumonia. The ER attending provider suspected a viral process with pleurisy, however, given her findings including elevated lactate, ongoing borderline low blood pressure, ongoing shortness of breath with an oxygen saturation of 92% on room air, he felt that it was appropriate to admit the patient for observation. She was admitted to the [facility] floor. Upon admission, she reports feeling less wheezy after having an nebulizer treatment. She continues to have a cough, productive of yellow sputum. She reports a headache. She continues to have discomfort under bilateral breasts, over her ribs and chest discomfort at her sternum and in her back which i ncreases with deep breathing and coughing. She reports that she has been eating and drinking well at home. She did have vomiting and diarrhea last night. She continues to have some nausea. She has been experiencing fevers intermittently for the last 2 weeks. She was seen in her PCP office 5 days ago for a rash on her hands. The rash then extended over body. She also describes having multipl e lesions in her mouth about a week ago they were very painful, the lesions have since resolved. She was treated for a urinary tract infection with Macrobid just prior to the onset of this illness. She denies any dysuria, hematuria, frequency or urgency at this time. She describes overall not feeling well and feeling fatigued. 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 Review of Systems All systems reviewed & are unremarkable except as noted in HPI and below PFSH Social History Smoking/Tobacco Use Status: Former Tobacco Use Alcohol Intake: current Alcohol Intake frequency: holidays/special occasions only Drug use: Never Substance use type: does not use current occupation: [employer] Water heater temp set <120 deg: Yes Working smoke detector in home: Yes Fire extinguisher in home: Yes Carbon monox detector in home: Yes Do you feel safe at home: Yes Do you feel safe in your relationship?: Yes Meds Home Medications and Allergies Home Medications Medication Instructions Recorded Confirmed Type ascorbic acid (vitamin C) [Vitamin 500 mg PO DAILY #100 tab 03/05/18 09/03/19 Rx C] albuterol sulfate 90 mcg/actuation 2 puff IH Q4H PRN #8.5 gm 08/16/18 09/03/19 Rx aerosol inhaler montelukast 10 mg tablet 10 mg PO QPM #30 tab 10/16/18 09/03/19 Rx escitalopram oxalate 10 mg tablet 10 mg PO DAILY #30 tab 11/14/18 09/03/19 Rx cetirizine 10 mg tablet 10 mg PO BID PRN 04/25/19 09/03/19 History ranitidine HCl 150 mg tablet 150 mg PO BID PRN 04/25/19 09/03/19 History hydrochlorothiazide 25 mg tablet 25 mg PO DAILY PRN #20 tab 05/09/19 09/03/19 Rx hydroxyzine HCl 10 mg tablet See Rx Instructions PO QID PRN 05/09/19 09/03/19 Rx #100 tab omega 0-sru-ytz-fish oil 1,000 mg 1 cap PO DAILY #100 cap 08/12/19 09/03/19 Rx (120 mg-180 mg) capsule Allergies Allergy/AdvReac Type Severity Reaction Status Date / Time hornet venom Allergy Severe Verified 09/03/19 06:33 tree nut Allergy Severe Anaphylaxsi Verified 09/03/19 06:33 s codeine AdvReac Unknown GI problems Verified 09/03/19 06:33 cold Allergy Severe Anaphylaxsi Uncoded 09/03/19 06:33 s Exam Narrative Exam Narrative: General: Middle-age female, laying in bed with head elevated, does not appear to be in acute distress but appears ill. Face is flushed. Answers questions appropriately, alert and oriented x3. HEENT: Atraumatic, pupils equal and round, EOMI mucous membranes slightly dry, no oral lesions noted. Neck: Supple, no JVD. Cardiovascular: Heart has regular rate and rhythm, no murmur appreciated. Respiratory: Respirations appear even and unlabored. Expiratory wheeze noted in right upper lung field, fine rales to bilateral bases, no coughing during exam. GI: Normoactive bowel sounds throughout, abdomen soft, nontender on palpation, no masses appreciated. Extremities: No clubbing, cyanosis or edema. Pedal pulses palpable bilaterally. Results Labs Result diagrams: 09/06/19 06:40 09/06/19 06:40 Labs: Laboratory Results - last 24 hr 09/03/19 09/03/19 09/03/19 06:47 06:47 06:47 WBC 8.19 RBC 4.44 Hgb 13.7 Hct 42.2 MCV 95.0 MCH 30.9 MCHC 32.5 RDW 13.2 Plt Count 185 MPV 9.4 Immature Gran % 0.9 Neutrophils % 93.6 Lymphocytes % 1.3 Monocytes % 2.3 Eosinophils % 1.8 Basophils % 0.1 Absolute Neutrophils 7.66 H Absolute Lymphocytes 0.11 L Absolute Monocytes 0.19 Absolute Eosinophils 0.15 Absolute Basophils 0.01 PT 9.7 INR 1.0 APTT 22.1 D-Dimer 4367 H Sodium 145 Potassium 3.3 L Chloride 107 Carbon Dioxide 28.8 Anion Gap 9.2 BUN 24 H Creatinine 1.01 Estimated GFR/1.73 m2 56.50 Glucose 128 H Lactate Calcium 8.8 Magnesium 1.7 L Total Bilirubin 0.9 AST 30 ALT 45 Alkaline Phosphatase 47 Troponin I < 0.05 NT-Pro-B Natriuret Pep Total Protein 6.7 Albumin 3.2 L Procalcitonin 09/03/19 09/03/19 09/03/19 06:47 06:47 06:47 WBC RBC Hgb Hct MCV MCH MCHC RDW Plt Count MPV Immature Gran % Neutrophils % Lymphocytes % Monocytes % Eosinophils % Basophils % Absolute Neutrophils Absolute Lymphocytes Absolute Monocytes Absolute Eosinophils Absolute Basophils PT INR APTT D-Dimer Sodium Potassium Chloride Carbon Dioxide Anion Gap BUN Creatinine Estimated GFR/1.73 m2 Glucose Lactate 2.4 H* Calcium Magnesium Total Bilirubin AST ALT Alkaline Phosphatase Troponin I NT-Pro-B Natriuret Pep 277 Total Protein Albumin Procalcitonin 4.9 Last Vital Signs Temp 36.9 C 09/03/19 15:00 Pulse 93 H 09/03/19 15:48 Resp 12 09/03/19 15:37 BP 97/61 L 09/03/19 15:00 Pulse Ox 94 L 09/03/19 15:35
[2019-09-03] MEDS: Normal Saline 1,000 ML 1000 ML IV (17:43)
[2019-09-03] MEDS: Albuterol/Ipratropium 3 ML UPD VIAL UPD (18:07)
[2019-09-03] MEDS: Montelukast 10 MG TAB PO (19:31)
[2019-09-03] MEDS: Ibuprofen 600 MG TAB PO (20:18)
[2019-09-03 20:55] LABS: Troponin I < 0.05 ng/mL (0.00-0.06)
[2019-09-03] MEDS: DOXYCYCLINE 100 MG in Normal Saline 100 ML IVPB (21:35)
[2019-09-04] VITALS (13 sets, daily range): BP systolic 109–123; BP diastolic 60–80; PULSE 72–90; RESP 1–20; TEMP 36.2–37.3; O2SAT 93–96
[2019-09-04] MEDS: Albuterol/Ipratropium 3 ML UPD VIAL UPD ×2 (00:01→06:47)
[2019-09-04] MEDS: POTASSIUM CHLORIDE/0.9% NACL 1,000 ML 150 MEQ IV (04:30)
[2019-09-04] MEDS: Ibuprofen 600 MG TAB PO (04:39)
[2019-09-04] MEDS: Acetaminophen 325 MG TAB PO ×3 (04:40→20:24)
[2019-09-04 07:27] LABS: Lactate 1.3 mmol/L (0.6-1.4)
[2019-09-04 07:36] LABS: Abs Immature Grans 0.05 k/cumm (0.0-0.09); Absolute Basophil Count 0.02 k/cumm (0.0-0.2); Absolute Eosinophil Count 0.63 k/cumm (0.0-0.7); Absolute Lymphocyte Count 1.19 k/cumm (1.2-3.4); Absolute Monocyte Count 0.25 k/cumm (0.11-0.7); Absolute Neutrophil Count 4.18 k/cumm (1.2-6.7); Basophils % 0.3; HCT 35.3 % (36.0-46.0); HGB 11.3 g/dL (12.0-15.5); Immature Grans % 0.8; Lymphocytes % 18.8; Mean Corpuscular Hemoglobin 30.8 pg (27.0-33.0); Mean Corpuscular Volume 96.2 fL (80-95); Mean Platelet Volume 9.5 fL (8.0-11.0); Neutrophils % 66.1; Platelet Count 173 x1000/uL (130-400); RBC 3.67 m/cumm (4.00-5.20); RBC Distribution Width 13.6 % (11.7-14.6); White Blood Cell Count 6.32 k/cumm (4.4-10.8)
[2019-09-04 07:42] LABS: BUN 13 mg/dL (7-18); CREATININE 0.74 mg/dL (0.55-1.02); Chloride 111 mmol/L (98-107); Glucose 105 mg/dL (70-100); Magnesium 2.2 mg/dL (1.8-2.4); Potassium 4.1 mmol/L (3.5-5.1); Sodium 145 mmol/L (136-145)
[2019-09-04 08:06] LABS: Procalcitonin 6.7 ng/mL
[2019-09-04] MEDS: Benzonatate 100 MG CAP PO ×3 (08:44→20:09)
[2019-09-04] MEDS: cefTRIAXone 1 GM/50 ML BAG IVPB (08:44)
[2019-09-04] MEDS: Escitalopram 10 MG TAB PO (08:44)
[2019-09-04] MEDS: guaiFENesin 600 MG TABCR PO ×2 (08:45→20:09)
[2019-09-04] MEDS: DOXYCYCLINE 100 MG in Normal Saline 100 ML IVPB ×2 (10:22→22:27)
[2019-09-04 10:53] LABS: LDH 156 U/L (81-234)
[2019-09-04] MEDS: Ketorolac 30 MG/ML VIAL IVP (11:39)
[2019-09-04] MEDS: Enoxaparin 40 MG/0.4 ML SYR SC (11:39)
[2019-09-04] MEDS: Normal Saline Flush 10 ML SYR IVP ×2 (11:40→16:41)
--- NOTE | 2019-09-04 13:02 | PGE_ITS ---
Documented by User: Kelin Parra NP 09/04/19 13:19 Date of Service Date of service: 09/04/19 Time of Service: 13:02 Assessment and Plan Assessment and plan (1) Bronchitis: Status: Acute Assessment and plan: Likely with bacterial component in the setting of elevated lactate to 2.4 and procalcitonin of 4.9 on admission. Lacated down to 1.3 today. Procalcitonin up to 6.7, unclear if other factors are contributing to the elevated procalcitonin. Possibly with autoimmune component. She is feeling better, WBC normal, no documented fevers. Continue antibiotics with IV ceftriaxone and doxycycline. Consult ID for recommendations. (2) Fever: Status: Acute Assessment and plan: Reports fever at home. Afebrile overnight. Consider viral process versus bacterial process. Treat as above. Blood cultures with NGTD. Repeat labs in the morning. (3) Skin rash: Status: Acute Assessment and plan: Improved with Benadryl. Has history of cold urticaria, followed at [facility]. PRN Benadryl for hives. (4) Depression: Status: Acute Assessment and plan: Continue Lexapro. Hydroxyzine as needed for anxiety. (5) History of cold urticaria: Status: Chronic Assessment and plan: [place] [facility] [place] Recommends cetirizine twice daily as needed, ranitidine 150 mg twice daily as needed if hives persist with cetirizine. (6) Hypokalemia: Status: Resolved Assessment and plan: Improved, potassium containing IV fluids discontinued. Continue to follow. (7) Hypomagnesemia: Status: Resolved Assessment and plan: Improved with supplementation, continue to monitor. (8) Chest pain: Status: Acute Assessment and plan: Sounds pleuritic by history. Troponin negative x2. (9) DVT prophylaxis: Status: Acute Assessment and plan: Subcutaneous Lovenox. (10) Discharge planning issues: Status: Acute Assessment and plan: She is a full code. This case was discussed with Dr. Dumont who is in agreement. Subjective Subjective Interval history since last seen: Mirtha reports that she is feeling mildly better. She has a headache. She continues to cough and have pain with deep breathing. She does not feel wheezy or short of breath. She has been afebrile overnight but she describes feeling hot and cold and having sweats. She denies chest pain/pressure, palpitations. She is eating and drinking without nausea, vomiting or diarrhea. The duonebs made her feel tremulous, she would like them changed to PRN. Exam Narrative Exam Narrative: General: Middle-age female, laying in bed with head elevated, does not appear to be in acute distress. Face is flushed. Answers questions appropriately, alert and oriented x3. HEENT: Atraumatic, pupils equal and round, EOMI mucous membranes slightly dry, no oral lesions noted. Neck: Supple, no JVD. Cardiovascular: Heart has regular rate and rhythm, no murmur appreciated. Respiratory: Respirations appear even and unlabored. Diminished lung sounds throughout. No wheezing or rales. GI: Normoactive bowel sounds throughout, abdomen soft, nontender on palpation, no masses appreciated. Extremities: Trace nonpitting edema to bilateral upper and lower extremities. No clubbing or cyanosis. Pedal pulses palpable bilaterally. Objective Objective Clinical Data: Abnormal lab results 09/04/19 09/04/19 Range/Units 07:17 07:17 RBC 3.67 L (4.00-5.20) m/cumm Hgb 11.3 L D (12.0-15.5) g/dL Hct 35.3 L (36.0-46.0) % MCV 96.2 H (80-95) fL Absolute Lymphocytes 1.19 L (1.2-3.4) k/cumm Chloride 111 H (98-107) mmol/L Glucose 105 H (70-100) mg/dL Calcium 8.0 L (8.5-10.1) mg/dL Vital Signs Temperature 36.7 C 09/04/19 07:00 Temperature Source Tympanic 09/04/19 07:00 Pulse 84 09/04/19 07:01 Pulse Rhythm Regular 09/04/19 08:53 Pulse 97 H 09/03/19 08:20 Respiratory Rate 18 09/04/19 07:00 Respiratory Effort Non-Labored 09/04/19 08:53 Respiratory Depth Normal 09/04/19 08:53 Respiratory Pattern Normal 09/04/19 08:53 Blood Pressure 109/69 09/04/19 07:00 Blood Pressure Mean 65 09/03/19 09:30 Pulse Oximetry 94 L 09/04/19 07:00 Oxygen Delivery Method Room Air 09/04/19 07:00 Oxygen Flow Rate 0 09/04/19 07:00 Pain Level 7 09/04/19 11:39 Comment 09/03/19 13:31 Intake & Output 09/03/19 09/04/19 09/04/19 23:59 11:59 23:59 Intake Total 1675 / 3725 2240 / 2240 Output Total 900 / 900 1000 / 1000 Balance 775 / 2825 1240 / 1240 Weight 104.326 kg Intake: IV 1675 / 3725 1999 / 1999 Oral 240 / 240 Output: Urine 900 / 900 1000 / 1000 Other: Urine Color Yellow Dark Justina Urine Appearance Clear Clear Urine Odor None Normal Voiding Methods Toilet Laboratory Results WBC 6.32 k/cumm (4.4-10.8) 09/04/19 07:17 RBC 3.67 m/cumm (4.00-5.20) L 09/04/19 07:17 Hgb 11.3 g/dL (12.0-15.5) L D 09/04/19 07:17 Hct 35.3 % (36.0-46.0) L 09/04/19 07:17 MCV 96.2 fL (80-95) H 09/04/19 07:17 MCH 30.8 pg (27.0-33.0) 09/04/19 07:17 MCHC 32.0 g/dL (32.0-36.0) 09/04/19 07:17 RDW 13.6 % (11.7-14.6) 09/04/19 07:17 Plt Count 173 x1000/uL (130-400) 09/04/19 07:17 MPV 9.5 fL (8.0-11.0) 09/04/19 07:17 Immature Gran % 0.8 09/04/19 07:17 Neutrophils % 66.1 09/04/19 07:17 Lymphocytes % 18.8 09/04/19 07:17 Monocytes % 4.0 09/04/19 07:17 Eosinophils % 10.0 09/04/19 07:17 Basophils % 0.3 09/04/19 07:17 Absolute Neutrophils 4.18 k/cumm (1.2-6.7) 09/04/19 07:17 Absolute Lymphocytes 1.19 k/cumm (1.2-3.4) L 09/04/19 07:17 Absolute Monocytes 0.25 k/cumm (0.11-0.7) 09/04/19 07:17 Absolute Eosinophils 0.63 k/cumm (0.0-0.7) 09/04/19 07:17 Absolute Basophils 0.02 k/cumm (0.0-0.2) 09/04/19 07:17 PT 9.7 sec (9.3-11.0) 09/03/19 06:47 INR 1.0 (0.9-1.1) 09/03/19 06:47 APTT 22.1 sec (21.0-31.4) 09/03/19 06:47 D-Dimer 4367 ng/mlFEU (<500) H 09/03/19 06:47 Sodium 145 mmol/L (136-145) 09/04/19 07:17 Potassium 4.1 mmol/L (3.5-5.1) D 09/04/19 07:17 Chloride 111 mmol/L (98-107) H 09/04/19 07:17 Carbon Dioxide 25.0 mmol/L (21.0-32.0) 09/04/19 07:17 Anion Gap 9.0 mmol/L (3-11) 09/04/19 07:17 BUN 13 mg/dL (7-18) D 09/04/19 07:17 Creatinine 0.74 mg/dL (0.55-1.02) 09/04/19 07:17 Estimated GFR/1.73 m2 >= 60.00 (mL/min/1.73m2) 09/04/19 07:17 Glucose 105 mg/dL (70-100) H 09/04/19 07:17 Lactate 1.3 mmol/L (0.6-1.4) 09/04/19 07:17 Calcium 8.0 mg/dL (8.5-10.1) L 09/04/19 07:17 Magnesium 2.2 mg/dL (1.8-2.4) 09/04/19 07:17 Total Bilirubin 0.9 mg/dL (0.2-1.0) 09/03/19 06:47 AST 30 U/L (15-37) 09/03/19 06:47 ALT 45 U/L (14-59) 09/03/19 06:47 Alkaline Phosphatase 47 U/L (46-116) 09/03/19 06:47 Lactate Dehydrogenase 156 U/L (81-234) 09/04/19 07:17 Troponin I < 0.05 ng/mL (0.00-0.06) 09/03/19 20:15 NT-Pro-B Natriuret Pep 277 pg/mL (-299) 09/03/19 06:47 Total Protein 6.7 g/dL (6.4-8.2) 09/03/19 06:47 Albumin 3.2 g/dL (3.4-5.0) L 09/03/19 06:47 Procalcitonin 6.7 ng/mL 09/04/19 07:17 Documented by User: Milagros Dumont MD 09/06/19 11:03
--- NOTE | 2019-09-04 14:57 | INITIAL_ITS ---
- If Service Date Differs Date of service: 09/04/19 Time of Service: 14:57 Care Management Initial Assess REASON FOR HOSPITALIZATION:: Acute bronchitis. PAST MEDICAL HISTORY/PAST SURGICAL HISTORY:: Medical History: Circumscribed scleroderma, Depression, Dermatographia, Edema, Genital herpes simplex, GERD (gastroesophageal reflux disease), History of cold urticaria, History of tobacco use disorder, Kidney stones. Varicose veins of both lower extremities, and Vitamin D deficiency. Surgical History: Appendectomy, Breast Implants Bilateral, Colonoscopy - MAC, Discectomy L spine ? level L5-S1, EGD w/ BX, Left leg saphenous vein ablation, and Tonsillectomy and adenoidectomy. PREVIOUS FUNCTIONAL STATUS/SOCIAL/FAMILY SUPPORTS:: Mirtha resides in [facility] with her three teenage children. 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 Mirtha drives, cooks, cleans, and is independent at baseline. She names as her supports a long-time partner, a sister, and her children. CURRENT FUNCTIONAL STATUS:: Mirtha is standing in her room when meets with her. She is pleasant and easily engages in conversation. She states when she woke up yesterday morning she had a rash and difficulty breathing, so she drove herself to the hospital. ADVANCE DIRECTIVES:: On file at [facility]; Jamin Gomez is agent. Has patient been provided with information about the portal?: No Did the patient sign up for the portal?: No CODE STATUS:: Full Code INSURANCE COVERAGE / FINANCIAL ISSUES:: [place] and [place] CURRENT HOME/COMMUNITY SERVICES/EQUIPMENT:: Mirtha reports she uses an epipen and an inhaler at home but has no other equipment or community services. PRIMARY CARE PHYSICIAN:: Deedee Gonzalez aprn, [facility] POTENTIAL DISCHARGE NEEDS:: Follow-up with primary care physician. PATIENT/FAMILY EDUCATION NEEDS:: Discharge plan, limitations, and follow-up plan of care, including Ask Me Three and self-management. ANTICIPATED BARRIERS TO DISCHARGE:: None anticipated at this time. TRANSPORTATION:: Mirtha's vehicle is parked in the hospital parking lot. Mirtha reports she will drive herself home when ready. PLAN:: Mirtha will be discharged home when medically cleared by provider. Anticipate no additional services needed at time of discharge. Mirtha will drive herself home when ready.
--- NOTE | 2019-09-04 15:31 | DI.RAD_ITS ---
EXAM: XR CHEST 2V PA LATERAL CLINICAL HISTORY: question of crackles TECHNIQUE: COMPARISON: No exams were available for comparison FINDINGS: The heart is mildly enlarged and has increased in size comparison with yesterday's examination. Mild increase in pulmonary interstitial markings since yesterday's examination. Small bilateral pleural effusions appear to be present increased from yesterday's study. Findings as described are suggestiv e mild CHF, slight interval worsening since yesterday's examination. There also question patchy increased radiodensity in retrocardiac portion of left lower lobe on the f rontal view, I cannot confirm this on the lateral view. IMPRESSION: Mildly increased CHF, left lower lobe infiltrate not excluded.
--- NOTE | 2019-09-04 15:59 | PHARADMIT ---
Admission Pharmacy Clinical Review Acute Bronchitis Code Status Full Code Current Weight 104.326 kg Renally Cleared and Narrow Therapeutic Index Meds CrCl~81ml/min QTc Value / Action Taken QTc 480 BP Control, Fever BP 110/71, afebrile Electrolytes reviewed Na 145, K+ 4.1 (up from 3.3), Mag 2.2 DVT Prophylaxis LMWH 40MG Opiate Usage / Scheduled Bowel Regimen Ordered Plt/SCr for Heparin / Enoxaparin Plt 173, Scr 0.74 INR for Warfarin H/H stable, WBC/Bands H/H 11.3/35.3 Antibiotic appropriateness Ceftriazone and Doxycycline Cultures and Sensitivities Blood culture - no growth Surgical ABX d/c within 24 hr DM control / Insulin Dosing Heart Failure (Check EF%) (RAMSES's, B-Block, Diuretics) hctz 25MG IV to PO Switch Home Meds Reviewed Yes - multiple antihistamines (prn) Home Meds Not Ordered HCTZ 25mg Comments Procalcitonin up to 6.7 today - possible autoimmune component
[2019-09-04] MEDS: Furosemide 20 MG/2 ML VIAL IVP (16:40)
[2019-09-04] MEDS: Ascorbic Acid 500 MG TAB PO (20:08)
[2019-09-04] MEDS: Montelukast 10 MG TAB PO (20:08)
[2019-09-05] VITALS (8 sets, daily range): BP systolic 104–133; BP diastolic 51–88; PULSE 65–78; RESP 14–18; TEMP 36.5–37; O2SAT 95–97
[2019-09-05 07:10] LABS: HCT 36.9 % (36.0-46.0); HGB 11.6 g/dL (12.0-15.5); Mean Corp. HGB Concentration 31.4 g/dL (32.0-36.0); Mean Corpuscular Hemoglobin 30.4 pg (27.0-33.0); Mean Corpuscular Volume 96.6 fL (80-95); Mean Platelet Volume 10.2 fL (8.0-11.0); Platelet Count 191 x1000/uL (130-400); RBC 3.82 m/cumm (4.00-5.20); RBC Distribution Width 13.6 % (11.7-14.6); White Blood Cell Count 4.22 k/cumm (4.4-10.8)
[2019-09-05 07:20] LABS: Anion Gap 7.7 mmol/L (3-11); BUN 13 mg/dL (7-18); CO2 27.3 mmol/L (21.0-32.0); CREATININE 0.75 mg/dL (0.55-1.02); Calcium 8.6 mg/dL (8.5-10.1); Chloride 108 mmol/L (98-107); Glucose 90 mg/dL (70-100); Potassium 4.2 mmol/L (3.5-5.1); Sodium 143 mmol/L (136-145)
[2019-09-05 07:48] LABS: Procalcitonin 4.3 ng/mL
[2019-09-05] MEDS: cefTRIAXone 1 GM/50 ML BAG IVPB (08:28)
[2019-09-05] MEDS: Normal Saline Flush 10 ML SYR IVP ×3 (08:29→22:26)
[2019-09-05] MEDS: Escitalopram 10 MG TAB PO (08:29)
[2019-09-05] MEDS: guaiFENesin 600 MG TABCR PO ×2 (08:29→20:22)
[2019-09-05] MEDS: Benzonatate 100 MG CAP PO ×3 (08:29→20:22)
[2019-09-05] MEDS: Ketorolac 30 MG/ML VIAL IVP (08:29)
[2019-09-05] MEDS: Ascorbic Acid 500 MG TAB PO ×2 (08:29→20:22)
[2019-09-05 08:47] LABS: Magnesium 2.1 mg/dL (1.8-2.4)
--- NOTE | 2019-09-05 09:46 | CMPROGNOTE_ITS ---
Care Management Progress Note S/O: Mirtha was lying in bed, talking to Dr. Dumont with her daughter present. She continues work up for chest pain and to be closely monitored at this time. CM continues to follow. A: 59 year old female admitted to [facility] 09/03/19 for Acute Bronchitis P: Mirtha will be discharged home when medically cleared by provider. Anticipate no additional services needed at time of discharge. Mirtha will drive herself home when ready.
[2019-09-05] MEDS: DOXYCYCLINE 100 MG in Normal Saline 100 ML IVPB ×2 (09:51→22:26)
[2019-09-05] MEDS: Enoxaparin 40 MG/0.4 ML SYR SC (11:25)
--- NOTE | 2019-09-05 15:59 | CHAPLAIN ---
Mirtha is a member of the [employer] and her [employer] team member, Rev. Gilmer Sarabia was here to visit her today.
--- NOTE | 2019-09-05 18:35 | PGE_ITS ---
Date of Service Date of service: 09/05/19 Time of Service: 16:00 Assessment and Plan Assessment and plan (1) Bronchitis: Status: Acute Assessment and plan: Likely with bacterial component in the setting of elevated lactate and procalcitonin - likely a superinfection after a viral bronchitis. The patient's friend now states that in fact they both had an upper respiratory illness about 2 weeks ago, but her friend's illness has resolved, but Ms Chang's got worse, which goes along with our hypothesis. Continue ceftriaxone/doxycycline. Repeat procalcitonin in am. Consider discharge home tomorrow. (2) Skin rash: Status: Acute Assessment and plan: Improved with Benadryl. Has history of cold urticaria, followed at [facility]. PRN Benadryl for hives. Warm IVF only if need hydration. (3) History of cold urticaria: Status: Chronic Assessment and plan: [place] [facility] [place] Recommends cetirizine twice daily as needed, ranitidine 150 mg twice daily as needed if hives persist with cetirizine. (4) Depression: Status: Acute Assessment and plan: Continue Lexapro. Hydroxyzine as needed for anxiety. (5) Hypokalemia: Status: Resolved Assessment and plan: Resolved. Recheck in am. (6) Hypomagnesemia: Status: Resolved Assessment and plan: Recheck in am. (7) Chest pain: Status: Acute Assessment and plan: Sounds pleuritic by history. Troponin negative x2. Resolved with improvement in cough. No further workup. D/c tele. (8) DVT prophylaxis: Status: Acute Assessment and plan: Subcutaneous Lovenox. (9) Discharge planning issues: Status: Acute Assessment and plan: She is a full code. Planned for discharge home tomorrow assuming procalcitonin continues to improve and the patient feels ready. Subjective Subjective Interval history since last seen: Ms Chang states she is feeling better. Rash has resolved. She denies dizziness, states her ribs no longer hurt when she coughs, but has still been coughing quite a bit. Denies shortness of breath, nausea, vomiting. Exam Narrative Exam Narrative: General: somewhat anxious obese female who does have a cough, but does not look toxic, A&OX3, no obvious rash HEENT: EOMI, MMM Heart: RRR, mildly tachycardic (90's) Lungs: slightly rhonchorous B GI: abdomen is soft, nontender, nondistended Extremities: no e/c/c BLE's Objective Objective Clinical Data: Abnormal lab results 09/05/19 09/05/19 Range/Units 06:12 06:12 WBC 4.22 L D (4.4-10.8) k/cumm RBC 3.82 L (4.00-5.20) m/cumm Hgb 11.6 L (12.0-15.5) g/dL MCV 96.6 H (80-95) fL MCHC 31.4 L (32.0-36.0) g/dL Chloride 108 H (98-107) mmol/L Vital Signs Temperature 36.9 C 09/05/19 16:44 Temperature Source Tympanic 09/05/19 16:44 Pulse 73 09/05/19 16:44 Pulse Rhythm Regular 09/05/19 16:10 Pulse 97 H 09/03/19 08:20 Respiratory Rate 16 09/05/19 16:44 Respiratory Effort Non-Labored 09/05/19 16:10 Respiratory Depth Normal 09/05/19 16:10 Respiratory Pattern Normal 09/05/19 16:10 Blood Pressure 112/75 09/05/19 16:44 Blood Pressure Mean 65 09/03/19 09:30 Pulse Oximetry 96 09/05/19 16:44 Oxygen Delivery Method Room Air 09/05/19 16:44 Oxygen Flow Rate 0 09/05/19 16:44 Pain Level 0 09/05/19 16:44 Comment 09/03/19 13:31 Intake & Output 09/04/19 09/05/19 09/05/19 23:59 11:59 23:59 Intake Total 650 / 3415 150 / 150 Output Total 1500 / 2500 Balance -850 / 915 150 / 150 Weight 108.9 kg Intake: IV 250 / 2775 150 / 150 Oral 400 / 640 Output: Urine 1500 / 2500 Other: Urine Color Light Justina Pale Yellow Urine Appearance Clear Voiding Methods Toilet Laboratory Results WBC 4.22 k/cumm (4.4-10.8) L D 09/05/19 06:12 RBC 3.82 m/cumm (4.00-5.20) L 09/05/19 06:12 Hgb 11.6 g/dL (12.0-15.5) L 09/05/19 06:12 Hct 36.9 % (36.0-46.0) 09/05/19 06:12 MCV 96.6 fL (80-95) H 09/05/19 06:12 MCH 30.4 pg (27.0-33.0) 09/05/19 06:12 MCHC 31.4 g/dL (32.0-36.0) L 09/05/19 06:12 RDW 13.6 % (11.7-14.6) 09/05/19 06:12 Plt Count 191 x1000/uL (130-400) 09/05/19 06:12 MPV 10.2 fL (8.0-11.0) 09/05/19 06:12 Immature Gran % 0.8 09/04/19 07:17 Neutrophils % 66.1 09/04/19 07:17 Lymphocytes % 18.8 09/04/19 07:17 Monocytes % 4.0 09/04/19 07:17 Eosinophils % 10.0 09/04/19 07:17 Basophils % 0.3 09/04/19 07:17 Absolute Neutrophils 4.18 k/cumm (1.2-6.7) 09/04/19 07:17 Absolute Lymphocytes 1.19 k/cumm (1.2-3.4) L 09/04/19 07:17 Absolute Monocytes 0.25 k/cumm (0.11-0.7) 09/04/19 07:17 Absolute Eosinophils 0.63 k/cumm (0.0-0.7) 09/04/19 07:17 Absolute Basophils 0.02 k/cumm (0.0-0.2) 09/04/19 07:17 PT 9.7 sec (9.3-11.0) 09/03/19 06:47 INR 1.0 (0.9-1.1) 09/03/19 06:47 APTT 22.1 sec (21.0-31.4) 09/03/19 06:47 D-Dimer 4367 ng/mlFEU (<500) H 09/03/19 06:47 Sodium 143 mmol/L (136-145) 09/05/19 06:12 Potassium 4.2 mmol/L (3.5-5.1) 09/05/19 06:12 Chloride 108 mmol/L (98-107) H 09/05/19 06:12 Carbon Dioxide 27.3 mmol/L (21.0-32.0) 09/05/19 06:12 Anion Gap 7.7 mmol/L (3-11) 09/05/19 06:12 BUN 13 mg/dL (7-18) 09/05/19 06:12 Creatinine 0.75 mg/dL (0.55-1.02) 09/05/19 06:12 Estimated GFR/1.73 m2 >= 60.00 (mL/min/1.73m2) 09/05/19 06:12 Glucose 90 mg/dL (70-100) 09/05/19 06:12 Lactate 1.3 mmol/L (0.6-1.4) 09/04/19 07:17 Calcium 8.6 mg/dL (8.5-10.1) 09/05/19 06:12 Magnesium 2.1 mg/dL (1.8-2.4) 09/05/19 06:12 Total Bilirubin 0.9 mg/dL (0.2-1.0) 09/03/19 06:47 AST 30 U/L (15-37) 09/03/19 06:47 ALT 45 U/L (14-59) 09/03/19 06:47 Alkaline Phosphatase 47 U/L (46-116) 09/03/19 06:47 Lactate Dehydrogenase 156 U/L (81-234) 09/04/19 07:17 Troponin I < 0.05 ng/mL (0.00-0.06) 09/03/19 20:15 NT-Pro-B Natriuret Pep 277 pg/mL (-299) 09/03/19 06:47 Total Protein 6.7 g/dL (6.4-8.2) 09/03/19 06:47 Albumin 3.2 g/dL (3.4-5.0) L 09/03/19 06:47 Procalcitonin 4.3 ng/mL 09/05/19 06:12 Legionella Source (see note) 09/03/19 18:00 Legionella Reprt Status (see note) 09/03/19 18:00 Legionella Final Result (see note) 09/03/19 18:00 Echo: LVEF 60%, PA pressure 40 mm Hg, mild mitral regurgitation, 2+ tricuspid regurgitation (done at the time of being fluid overloaded).
[2019-09-05] MEDS: Montelukast 10 MG TAB PO (20:22)
[2019-09-06 00:20] VITALS: BP 108/69; PULSE 73; RESP 17; TEMP 36.9; O2SAT 95
[2019-09-06 03:25] VITALS: BP 128/81; PULSE 60; RESP 16; TEMP 36.7; O2SAT 96
[2019-09-06 07:00] VITALS: BP 118/81; PULSE 71; RESP 18; TEMP 36.5; O2SAT 96
[2019-09-06 07:27] LABS: Abs Immature Grans 0.05 k/cumm (0.0-0.09); Absolute Basophil Count 0.03 k/cumm (0.0-0.2); Absolute Eosinophil Count 0.65 k/cumm (0.0-0.7); Absolute Lymphocyte Count 1.54 k/cumm (1.2-3.4); Absolute Monocyte Count 0.33 k/cumm (0.11-0.7); Absolute Neutrophil Count 2.14 k/cumm (1.2-6.7); Basophils % 0.6; Eosinophils % 13.7; HGB 12.3 g/dL (12.0-15.5); Immature Grans % 1.1; Lymphocytes % 32.5; Mean Corp. HGB Concentration 31.5 g/dL (32.0-36.0); Mean Corpuscular Volume 95.1 fL (80-95); Mean Platelet Volume 9.4 fL (8.0-11.0); Neutrophils % 45.1; Platelet Count 211 x1000/uL (130-400); RBC Distribution Width 13.2 % (11.7-14.6); White Blood Cell Count 4.74 k/cumm (4.4-10.8)
[2019-09-06 07:53] LABS: BUN 13 mg/dL (7-18); CREATININE 0.81 mg/dL (0.55-1.02); Calcium 8.9 mg/dL (8.5-10.1); Chloride 108 mmol/L (98-107); Glucose 88 mg/dL (70-100); Potassium 4.3 mmol/L (3.5-5.1); Sodium 144 mmol/L (136-145)
[2019-09-06 08:41] LABS: Procalcitonin 2.5 ng/mL
[2019-09-06] MEDS: Normal Saline Flush 10 ML SYR IVP (08:58)
[2019-09-06] MEDS: Ketorolac 30 MG/ML VIAL IVP (08:58)
[2019-09-06] MEDS: cefTRIAXone 1 GM/50 ML BAG IVPB (08:58)
[2019-09-06] MEDS: guaiFENesin 600 MG TABCR PO (08:59)
[2019-09-06] MEDS: Benzonatate 100 MG CAP PO (08:59)
[2019-09-06] MEDS: Cetirizine 10 MG TAB PO (08:59)
[2019-09-06] MEDS: Escitalopram 10 MG TAB PO (08:59)
[2019-09-06] MEDS: Ascorbic Acid 500 MG TAB PO (08:59)
[2019-09-06] MEDS: DOXYCYCLINE 100 MG in Normal Saline 100 ML IVPB (09:47)
[2019-09-06 11:03] VITALS: PULSE 78; PULSE 80; PULSE 85; RESP 16; O2SAT 96; O2SAT 97; O2SAT 98
--- NOTE | 2019-09-06 11:03 | W.PM.DS.N ---
Date of service: 09/06/19 Time of Service: 11:03 DS: Diagnosis Discharge Diagnosis (1) Bronchitis: Status: Acute (2) Skin rash: Status: Resolved (3) History of cold urticaria: Status: Chronic (4) Depression: Status: Acute (5) Hypokalemia: Status: Resolved (6) Hypomagnesemia: Status: Resolved (7) Chest pain: Status: Resolved Asessment and Plan: pleuritic, due to cough (8) Obesity (BMI 35.0-39.9 without comorbidity): Status: Chronic Discharge Plan Disposition Patient Disposition: HOME Condition: Stable Discharge Details Chief Complaint: Chest Pain Clinical Impression: URI (upper respiratory infection) Reason For Visit: ACUTE BRONCHITIS Admit Date/Time: 09/05/19 10:14 Admit Provider: Milagros Dumont Attending Provider: Milagros Dumont Primary Care Provider: Deedee Gonzalez ED Provider: Tu Abdullahi Hospital Course Hospital Course: Ms Chang is a 59 year old female with PMHx of cold urticaria, as well as circumscribed scleroderma, Depression/anxiety, and obesity with BMI of 35, who was admitted to [facility] hospitalist service on 09/03/19 with acute bacterial bronchitis following a viral illness, requiring inpatient treatment due to severity of symptoms, hypoxia to 89% on RA in ED, lactic acidosis, borderline hypotension on presentation, concomittent electrolyte abnormalities. As there was a strong suspicion for a bacterial superinfection component to her upper respiratory symptoms, procalcitonin was checked and was positive, indicating that the patient might benefit from antibiotic therapy. While there was a suspicion for LLL infiltrate, her CT of the chest did not confirm these, and the CXR on 09/04/19 was done while the patient was slightly fluid overloaded (Echo with preserved EF; likely iatrogenic fluid overload), and the pictures were not clear. There is also possibility of mild pulmonary hypertension, but the echo was done in a fluid overloaded state - a repeat echo could be obtained as outpatient to truly assess PA pressures. The patient did improve over the course of the next 3 days and feels ready to go home today. She will need to complete 5 more days of antiobiotics (doxycycline, cefuroxime), as she still has an active cough and her procalcitonin, though improved, has not normalized. She would benefit from a repeat CXR once she has completed her antiobiotics - one is being ordered for 09/11/19. She is asked to follow up with her PCP within 1 week prior to return to work. She does not require oxygen on discharge. She is medically stable for discharge home with above instructions - she verbalizes understanding. Care for patient as well as completion of her discharge summary took 45 minutes on the day of discharge. Home Meds and New Rx's Prescriptions: New benzonatate 100 mg Capsule 1 - 2 mg PO TID Qty: 30 RF: 0 guaifenesin [Mucinex] 600 mg Tablet Extended Release 12hr 600 mg PO BID PRN PRN (Reason: cough) Qty: 20 RF: 0 cefuroxime axetil 500 mg tablet 500 mg PO BID Qty: 10 RF: 0 doxycycline hyclate 100 mg capsule 100 mg PO BID Qty: 11 RF: 0 Lactobacillus acidophilus Capsule 1,000 mmu cells PO DAILY Qty: 30 RF: 0 Continued montelukast [Singulair] 10 mg tablet 10 mg PO QPM Qty: 30 RF: 12 escitalopram oxalate 10 mg tablet 10 mg PO DAILY Qty: 30 RF: 12 hydrochlorothiazide 25 mg tablet 25 mg PO DAILY PRN (Reason: LE edema) Qty: 20 RF: 12 hydroxyzine HCl 10 mg tablet See Rx Instructions PO QID PRN (Reason: itching) Qty: 100 RF: 2 omega 9-xmt-vvy-fish oil [Fish Oil] 1,000 mg (120 mg-180 mg) capsule 1 cap PO DAILY Qty: 100 RF: 3 ascorbic acid (vitamin C) [Vitamin C] 500 MG tablet 500 mg PO DAILY Qty: 100 RF: 3 cetirizine 10 mg tablet 10 mg PO BID PRNRF: 0 ranitidine HCl 150 mg tablet 150 mg PO BID PRNRF: 0 albuterol sulfate 90 mcg/actuation HFA aerosol inhaler 2 puff IH Q4H PRN (Reason: shortness of breath or wheezing) Qty: 18 RF: 0 Discontinued albuterol sulfate 90 mcg/actuation HFA aerosol inhaler 2 puff IH Q4H PRN (Reason: shortness of breath or wheezing) Qty: 8.5 RF: 3 Discharge Instructions Instructions: Cefuroxime (By mouth), Doxycycline (By mouth), Acute Bronchitis (GEN) Additional Instructions: Finish your antibiotics as prescribed. Return to the hospital with any fever, bleeding, chest pain, or shortness of breath. Follow up with your PCP next week - schedule your appointment. Chest X ray on 09/11/19. Referrals: Deedee Gonzalez NP [Primary Care Provider] - 09/10/19 10:00 am Activity:: Activity as Tolerated Equipment/Supplies:: No Equipment Needed Diet:: As Tolerated Discharge Orders Discharge Orders: Discharge Order (Routine); Ordered 09/06/19 Ordered By: Milagros Dumont Other Ambulatory Orders: XR chest 2V PA & lateral (Routine) Timeframe: [id number] Facility: [facility] - Location: DIAGNOSTIC IMAGING Ordered By: Milagros Dumont DS: Summary Status at Discharge Functional status at discharge: independent ambulation Overall status at discharge: patient is progressing back to baseline Mental Status: mental status grossly normal Speech and Movement: speech and movement normal Mood: congruent mood Affect: normal affect Exam Narrative Exam Narrative: General: somewhat anxious obese female who does have a cough, looks much better on the day of discharge HEENT: EOMI, MMM Heart: RRR, no m/r/g Lungs: CTAB GI: abdomen is soft, nontender, nondistended Extremities: no e/c/c BLE's Psych Mental Status: mental status grossly normal Speech and Movement: speech and movement normal Mood: congruent mood Affect: normal affect DS: Data Vitals/I&O Vitals and I&O: Vital Signs Temperature 36.5 C 09/06/19 07:00 Temperature Source Tympanic 09/06/19 07:00 Pulse 71 09/06/19 07:00 Pulse Rhythm Regular 09/06/19 09:30 Pulse 97 H 09/03/19 08:20 Respiratory Rate 18 09/06/19 07:00 Respiratory Effort Non-Labored 09/06/19 09:30 Respiratory Depth Normal 09/06/19 09:30 Respiratory Pattern Normal 09/06/19 09:30 Blood Pressure 118/81 09/06/19 07:00 Blood Pressure Mean 65 09/03/19 09:30 Pulse Oximetry 96 09/06/19 07:00 Oxygen Delivery Method Room Air 09/06/19 07:00 Oxygen Flow Rate 0 09/06/19 07:00 Pain Level 7 09/06/19 08:58 Comment 09/06/19 03:25 Intake & Output 09/05/19 09/05/19 09/06/19 11:59 23:59 11:59 Intake Total 150 / 510 360 / 510 420 / 420 Output Total 1650 / 1650 Balance 150 / 510 360 / 510 -1230 / -1230 Weight 108.9 kg Intake: IV 150 / 270 120 / 270 20 / 20 Oral 240 / 240 400 / 400 Output: Urine 1650 / 1650 Other: Urine Color Pale Yellow Yellow Urine Appearance Clear Urine Odor Normal Comment pt voiding independently. Voiding Methods Toilet Toilet Toilet Data Completed and Pending Completed studies during hospitalization [Text1]: CXR 09/03/19: Question of mild CHF. CT chest 09/03/19: Small bilateral pleural effusions and increased interstitial markings, suspicious for mild CHF. There is no evidence of pulmonary emboli, aortic dissection or focal pneumonia. CXR 09/04/19: Mildly increased CHF, left lower lobe infiltrate not excluded. Echo 09/04/19 (brief summary): LVEF 68%, no wall motion abnormalities, Pulmonary artery systolic pressure 40 mmHG (while in iatrogenic fluid overload), mild mitral regurgitation, moderate tricuspid regurgitation. Labs on day of discharge: Labs from last 24 hours 09/06/19 09/06/19 09/06/19 06:40 06:40 06:40 WBC 4.74 RBC 4.10 Hgb 12.3 Hct 39.0 MCV 95.1 H MCH 30.0 MCHC 31.5 L RDW 13.2 Plt Count 211 MPV 9.4 Immature Gran % 1.1 Neutrophils % 45.1 Lymphocytes % 32.5 Monocytes % 7.0 Eosinophils % 13.7 Basophils % 0.6 Absolute Neutrophils 2.14 Absolute Lymphocytes 1.54 Absolute Monocytes 0.33 Absolute Eosinophils 0.65 Absolute Basophils 0.03 Sodium 144 Potassium 4.3 Chloride 108 H Carbon Dioxide 27.0 Anion Gap 9.0 BUN 13 Creatinine 0.81 Estimated GFR/1.73 m2 >= 60.00 Glucose 88 Calcium 8.9 Magnesium 2.0 Procalcitonin 2.5 Preliminary micro results at discharge 09/03/19 10:55 Blood Culture - Preliminary Blood NO GROWTH 48 HOURS 09/03/19 10:45 Blood Culture - Preliminary Blood NO GROWTH 48 HOURS [facility] Medical History 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) Depression (Acute 02/22/18) 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) Edema (Acute 02/22/18) Genital herpes simplex (Acute 02/22/18) GERD (gastroesophageal reflux disease) (Acute 04/27/16) History of cold urticaria (Chronic) History of tobacco use disorder (Acute 03/05/18) Kidney stones Varicose veins of both lower extremities (Acute 02/22/18) Vitamin D deficiency (Acute 02/22/18) Social History Smoking/Tobacco Use Status: Former Tobacco Use Alcohol Intake: current Alcohol Intake frequency: holidays/special occasions only Drug use: Never Substance use type: does not use current occupation: [email or web address] Water heater temp set <120 deg: Yes Working smoke detector in home: Yes Fire extinguisher in home: Yes Carbon monox detector in home: Yes Do you feel safe at home: Yes Do you feel safe in your relationship?: Yes
[2019-09-06 11:05] VITALS: O2SAT 98
--- NOTE | 2019-09-06 12:44 | PDOC.CMDIS ---
- If Service Date Differs Date of service: 09/06/19 Time of Service: 12:44 LACE Index Scoring Tool - Questions: Length of Stay (in days): 3 Acuity (Admit via E.D.?): Yes E.D. Visits: 3 - Answers: Total Score: 9 Risk of Readmission: Low Risk Care Management Discharge Reason for Hospitalization: Acute bronchitis. Discharge Plan: Mirtha is discharged home with no services. She will follow-up with her PCP as directed. Patient/Family Education Needs: Nursing will review discharge instructions with Mirtha re medications and activity level. Mirtha is able to verbalize reason for hospitalization and how to manage care at home.
[2019-09-07 00:48] LABS: Mycoplasma Pneumoniae PCR Negative; Specimen source SPUTUM
[2019-09-09 18:01] LABS: Streptococcus Pneumoniae Ag, U Negative (Negative)
== END 2019-09-06 12:14 | disposition home or self-care (01) | DRG 203 ==
LOC: ER 11:54 → MS 15:09
PROVIDERS: Emergency Medicine; Nurse Practitioner; Admitting Provider Internal Medicine; Emergency Provider Emergency Medicine; PCP Nurse Practitioner; Visit Provider Internal Medicine
DX: J20.8 Acute bronchitis due to other specified organisms (principal); J06.9 Acute upper respiratory infection, unspecified; L50.2 Urticaria due to cold and heat; L94.0 Localized scleroderma [morphea]; E87.6 Hypokalemia; E83.42 Hypomagnesemia; F07.81 Postconcussional syndrome; E66.9 Obesity, unspecified; Z68.35 Body mass index [BMI] 35.0-35.9, adult; E86.0 Dehydration; K21.9 Gastro-esophageal reflux disease without esophagitis; Z87.891 Personal history of nicotine dependence; I07.1 Rheumatic tricuspid insufficiency
CPT/HCPCS: 36410; 36415; 71275; 80048; 80053; 84145; 85027; 87040; 87449; 93005; 94618; 96361; 96365; 96375; 99222; 99232; 99239; 99285; J1650; 71046; 83605; 83615; 83735; 83880; 84484; 85025; 85379; 85610; 85730; 87070; 87205; 87450; 87581; 93010; 93306; 94640; 99219; 99226; G0378; J0696; J1200; J1885; J1941; J3490; J7613; J7620

== ENCOUNTER 2019-09-11 10:57 | Outpatient (CLI) | payer BC, MEDICAID, SELFPAY ==
--- NOTE | 2019-09-11 10:45 | DI.RAD_ITS ---
EXAM: XR CHEST 2V PA LATERAL INDICATION: follow up acute bronchitis. COMPARISON: XR CHEST 2V PA LATERAL from 09/04/2019 TECHNIQUE: 2D digital imaging was performed. FINDINGS: Heart size and pulmonary vasculature within normal limits. The lungs are clear. No effusion or pneu mothorax is present. The bones are within normal limits. IMPRESSION: No acute pulmonary process.
== END 2019-09-11 11:17 ==
PROVIDERS: PCP Nurse Practitioner; Visit Provider Internal Medicine
DX: J20.9 Acute bronchitis, unspecified (principal)
CPT/HCPCS: 71046

== ENCOUNTER 2020-05-03 16:10 | Emergency (ER) | payer BC, MEDICAID, SELFPAY ==
[2020-05-03] VITALS (26 sets, daily range): BP systolic 102–135; BP diastolic 56–88; PULSE 64–84; RESP 18; TEMP 36.9; O2SAT 94–99
--- NOTE | 2020-05-03 16:14 | ED.GENADUL_ITS ---
Discharge Plan Disposition Patient Disposition: HOME Condition: Good Discharge Details Chief Complaint: Urinary Clinical Impression: Pyelonephritis Primary Care Provider: Deedee Gonzalez ED Provider: Lauren Fisher Home Meds and New Rx's Prescriptions: New ciprofloxacin HCl 500 mg tablet 500 mg PO BID Qty: 14 RF: 0 Continued omega 9-gak-wlh-fish oil [Fish Oil] 1,000 mg (120 mg-180 mg) capsule 1 cap PO DAILY Qty: 100 RF: 3 escitalopram oxalate 10 mg tablet 10 mg PO DAILY Qty: 90 RF: 3 hydrochlorothiazide 25 mg tablet 25 mg PO DAILY PRN (Reason: LE edema) Qty: 60 RF: 3 hydroxyzine HCl 10 mg tablet See Rx Instructions PO QID PRN (Reason: itching) Qty: 100 RF: 3 ascorbic acid (vitamin C) [Vitamin C] 500 MG tablet 500 mg PO DAILY Qty: 100 RF: 3 montelukast [Singulair] 10 mg tablet 10 mg PO QPM Qty: 30 RF: 12 cranberry 400 mg Capsule 400 mg PO DAILY RF: 0 albuterol sulfate 90 mcg/actuation HFA aerosol inhaler 2 puff IH Q4H PRN (Reason: shortness of breath or wheezing) Qty: 18 RF: 0 Discharge Instructions Instructions: Urinary Tract Infection in Women (ED) Additional Instructions: Continue antibiotics as directed even if you feel better You can use jseh-amv-syghitg pain medication as needed No lifting greater than 5 pounds until symptoms resolve If you develop a rash contact your primary care provider for evaluation as this could be shingles Referrals: Deedee Gonzalez NP [Primary Care Provider] - Medical Decision Making <Lauren Fisher NP - Last Filed: 05/03/20 18:34> patient presents complaints of right-sided flank pain similar to her previous history of kidney stones. She has had no fevers and is hemodynamically stable with no evidence of sepsis or Sirs response. Differentials include renal colic, pyelonephritis, muscle strain. Will establish IV give her IV fluids Zofran 4 mg IV ketorolac 30 mg IV check UA basic metabolic panel and CBC. Urine does show pyuria we will obtain CT of the abdomen and pelvis which showed no acute findings. White count 7 hemoglobin 15.5 hematocrit 45.8 platelet count 166 sodium 138 potassium 4.1 chloride 101 CO2 29 anion gap 7.8 BUN 12 creatinine 1.1 glucose 101 calcium 9.8. Will treat with ceftriaxone 1 g IV for suspected pyelonephritis in setting of pyuria with right flank pain. Her urine culture is pending and she should follow-up with primary care provider first thing this week. Her pain could be a muscle strain so she should continue with ytps-[id number] pain medication as needed and I would recommend no further lifting until symptoms resolved. Also considered is shingles as her pain did seem worse when I lifted her shirt to examine the area. She does have some redness that was thought to be due to her heating pad use but I feel that due to the characteristic of her pain it is possible that this is shingles pain. Lab Data Lab results reviewed: Yes I reviewed the patient's lab results. <Tu Abdullahi MD - Last Filed: 05/03/20 16:49> Patient seen, examined [id number], discussed with Ms. Fisher. I agree with her assessment and plan. HPI <Lauren Fisher NP - Last Filed: 05/03/20 18:34> General Mode of arrival: ambulatory . Date/Time Provider Initiated Documentation: 05/03/20 16:12 . Limitations to Documentation: no limitations . Information obtained by: patient . History of Present Illness described as moderate and similar to prior episodes, Quality is described as stabbing and s harp, and is localized to the right (flank). Patient abdomen. Patient started experiencing this day(s) (3) and it has been intermittent. Rest improves symptom(s), Movement worsens symptoms . Patient notes nausea/vomiting; denies fever/chills and rash. Patient did receive the following treatments prior to arrival, NSAID (tylenol) and heat therapy Related Data Home Medications Medication Instructions Recorded Confirmed ascorbic acid (vitamin C) [Vitamin 500 mg PO DAILY #100 tab 03/05/18 05/03/20 C] omega 7-fhc-ins-fish oil 1,000 mg 1 cap PO DAILY #100 cap 08/12/19 05/03/20 (120 mg-180 mg) capsule albuterol sulfate 2 puff IH Q4H PRN #18 gm 09/06/19 05/03/20 montelukast 10 mg tablet 10 mg PO QPM #30 tab 12/23/19 05/03/20 escitalopram oxalate 10 mg tablet 10 mg PO DAILY #90 tab 01/09/20 05/03/20 hydrochlorothiazide 25 mg tablet 25 mg PO DAILY PRN #60 tab 01/09/20 05/03/20 hydroxyzine HCl 10 mg tablet See Rx Instructions PO QID PRN 01/09/20 05/03/20 #100 tab ciprofloxacin HCl 500 mg PO BID #14 tab 05/03/20 cranberry 400 mg PO DAILY 05/03/20 05/03/20 Previous Rx's Medication Instructions Recorded ascorbic acid (vitamin C) [Vitamin 500 mg PO DAILY #100 tab 03/05/18 C] omega 0-boy-yxt-fish oil 1,000 mg 1 cap PO DAILY #100 cap 08/12/19 (120 mg-180 mg) capsule albuterol sulfate 2 puff IH Q4H PRN #18 gm 09/06/19 montelukast 10 mg tablet 10 mg PO QPM #30 tab 12/23/19 escitalopram oxalate 10 mg tablet 10 mg PO DAILY #90 tab 01/09/20 hydrochlorothiazide 25 mg tablet 25 mg PO DAILY PRN #60 tab 01/09/20 hydroxyzine HCl 10 mg tablet See Rx Instructions PO QID PRN 01/09/20 #100 tab ciprofloxacin HCl 500 mg PO BID #14 tab 05/03/20 Allergies Allergy/AdvReac Type Severity Reaction Status Date / Time hornet venom Allergy Severe Verified 05/03/20 16:24 tree nut Allergy Severe Anaphylaxsi Verified 05/03/20 16:24 s codeine AdvReac Unknown GI problems Verified 05/03/20 16:24 cold Allergy Severe Anaphylaxsi Uncoded 05/03/20 16:24 s General BLAYNE: 2 Review of Systems <Lauren Fisher, BUSINESS OPERATIONS COORDINATOR - Last Filed: 05/03/20 18:34> Constitutional Constitutional: Denies fever(s) Eyes Eyes: Denies change in vision ENT Ears, Nose, Mouth, and Throat: Denies vertigo and Denies dizziness Cardiovascular Cardiovascular: Denies chest pain Respiratory Respiratory: Denies chest congestion and Denies cough Gastrointestinal Gastrointestinal: Denies diarrhea and Reports nausea Genitourinary Genitourinary: Denies hematuria Musculoskeletal Musculoskeletal: Reports back pain and Denies numbness Integumentary/Breasts Skin/Breast: Denies rash Neurologic Neurologic: Denies vertigo, Denies dizziness and Denies numbness Hematologic/Lymphatic Hematologic/Lymphatic: Denies easy bleeding and Denies easy bruising PFSH <Lauren Fisher NP - Last Filed: 05/03/20 18:34> Medical History 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) Depression (Chronic 02/22/18) 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 level L5-S1 EGD w/ BX (04/27/16) Left leg saphenous vein ablation (01/29/16) Tonsillectomy and adenoidectomy Social History (Updated 01/09/20 @ 15:21 by Mirtha Wilson LPN) Smoking/Tobacco Use Status: Former Tobacco Use Alcohol Intake: current Alcohol Intake frequency: holidays/special occasions only Drug use: Never Substance use type: does not use Household members: spouse Number of Children: 7 current occupation: [employer] What is your relationship status?: Panel score (0-1 are the most socially isolated patients): 1 What type of physical activity do you participate in: regular exercise Water heater temp set <120 deg: Yes Working smoke detector in home: Yes Fire extinguisher in home: Yes Carbon monox detector in home: Yes Do you feel safe at home: Yes Do you feel safe in your relationship?: Yes Exam <Lauren Fisher NP - Last Filed: 05/03/20 18:34> Const General: cooperative and in distress moderate Nutritional Appearance: overweight Orientation: alert, awake and oriented x3 HENMT Head: normal to inspection, normocephalic and atraumatic Resp Effort & Inspection: normal respiratory effort Auscultation: clear to auscultation bilaterally Cardio Rate: regular rate Rhythm: regular rhythm GI Inspection: normal to inspection Palpation: soft Auscultation: normal bowel sounds Back/Spine/Pelvis Back: CVA tenderness (right) Skin Lesions: no lesions Rashes: rashes noted (Light red rash on left side of back Most consistent with recent heating pad) Extrem General: normal to inspection and full ROM
[2020-05-03 16:32] LABS: Bilirubin Small (Negative); Blood Negative (Negative); Clarity Clear (Clear); Glucose Negative (Negative); Ketones Trace mg/dL (Negative); Leukocyte Esterase Negative (Negative); Nitrite Negative (Negative); Urobilinogen 0.2 EU/dL (Up TO 0.2)
[2020-05-03 16:41] LABS: Epithelial Cells Many HPF (Negative); RBC Negative HPF (0-2); WBC Negative HPF (0-5)
[2020-05-03] MEDS: Ondansetron 4 MG/2 ML VIAL IVP (16:41)
[2020-05-03] MEDS: Ketorolac 30 MG/ML VIAL IVP (16:41)
[2020-05-03 16:42] LABS: Bacteria Moderate HPF (Negative); C & S Indicated? No/Sq. Contamination; Casts 5-10 Hyaline LPF (Negative); Crystals Negative HPF (Negative); Mucus Negative (Negative); Other Cells Negative (Negative)
[2020-05-03] MEDS: Normal Saline 1,000 ML 1000 ML IV (16:43)
--- NOTE | 2020-05-03 16:45 | DI.CT_ITS ---
EXAM: CT ABDOMEN PELVIS W CLINICAL HISTORY: RIGHT FLANK AND RIGHT ABDOMEN PAIN. TECHNIQUE: Imaging Protocol: Axial computed tomography images with coronal and sagittal reformatted images were created and reviewed CONTRAST MATERIAL: Intravenous: Omnipaque 350 Contrast volume:100 cc Oral: No COMPARISON: CT CT chest PE CTA from 08/13/[address] CHEST PE CTA from 09/03/2019 FINDINGS: ABDOMEN/PELVIS: Lung bases: Clear lungs. Normal heart size. Bilateral breast implants. Small hiatal hernia. Liver: Normal density. Stable cyst in the posterior right lobe. Other smaller cysts. Gallbladder: No calcified stones, no wall thickening, no abnormal distention.No pericholecystic fluid . Biliary tract: No radiodense calculus, no dilation. Pancreas: Normal density, no abnormal calcifications or inflammatory process. Spleen: Normal. Kidneys: Normal size, contour and axis. No radiodense stones. No hydronephrosis. No masses seen. No perinephric collection. Scarring posterior left kidney. Adrenal glands: No masses seen. Abdominal Aorta: Non-dilated. No atherosclerotic changes. Bowel: No obstruction or bowel wall thickening. Bladder: Nearly empty. No gross wall thickening, focal mass or stones. Peritoneal cavity: No ascites, focal collection or mesenteric inflammatory response. No free air. Bones: No suspicious lesions or fractures. Degenerative disc changes greatest at L5-S1. Reproductive organs: Within normal limits. Lymph nodes: No pathologically enlarged lymph nodes. Soft tissues: Small fatty containing umbilical hernia. Impression: No acute abnormality is identified in the abdomen and pelvis. Incidental findings as mentioned above. RADIATION DOSE DELIVERED: Total DLP Total DLP DATA REPOSITORY: All CT scans at this facility are submitted to the National Radiology Data Registry (NRDR) Dose Index Registry (DIR) with the [employer] (ACR). RADIATION OPTIMIZATION: All CT scans at this facility use at least one of these dose optimization te chniques: automated exposure control; mA and/or kV adjustment per patient size (includes targeted exa ms where dose is matched to clinical indication); or iterative reconstruction.
[2020-05-03 17:01] LABS: Abs Immature Grans 0.02 k/cumm (0.0-0.09); Absolute Basophil Count 0.02 k/cumm (0.0-0.2); Absolute Eosinophil Count 0.07 k/cumm (0.0-0.7); Absolute Lymphocyte Count 1.87 k/cumm (1.2-3.4); Absolute Monocyte Count 0.45 k/cumm (0.11-0.7); Absolute Neutrophil Count 4.94 k/cumm (1.2-6.7); Basophils % 0.3; Eosinophils % 0.9; HCT 45.8 % (36.0-46.0); HGB 15.5 g/dL (12.0-15.5); Immature Grans % 0.3 %; Lymphocytes % 25.4; Mean Corp. HGB Concentration 33.8 g/dL (32.0-36.0); Mean Corpuscular Hemoglobin 31.6 pg (27.0-33.0); Mean Corpuscular Volume 93.5 fL (80-95); Mean Platelet Volume 10.6 fL (8.0-11.0); Monocytes % 6.1; Platelet Count 166 x1000/uL (130-400); RBC Distribution Width 13.6 % (11.7-14.6); White Blood Cell Count 7.37 k/cumm (4.4-10.8)
[2020-05-03 17:04] LABS: Anion Gap 7.8 mmol/L (3-11); BUN 12 mg/dL (7-18); CO2 29.2 mmol/L (21.0-32.0); CREATININE 1.14 mg/dL (0.55-1.02); Calcium 9.8 mg/dL (8.5-10.1); Chloride 101 mmol/L (98-107); Estimated GFR 49.13 (mL/min/1.73m2); Glucose 101 mg/dL (74-106); Potassium 4.1 mmol/L (3.5-5.1); Sodium 138 mmol/L (136-145)
[2020-05-03] MEDS: Omnipaque 350 MG/ML 100 ML BTL IJ (17:29)
[2020-05-03] MEDS: Normal Saline - Diluent 50 ML VIAL IV (17:30)
[2020-05-03] MEDS: Normal Saline Flush 10 ML SYR IVP (17:30)
--- NOTE | 2020-05-03 17:59 | DI.VRAD_ITS ---
PROCEDURE INFORMATION: Exam: CT Abdomen And Pelvis With Contrast Exam date and time: 05/03/2020 5:23 PM Age: 59 years old Clinical indication: Other: Right flank pain and right abdominal pain; Prior surgery; Surgery date: 6+ months; Surgery type: Kidney surgery for stones years ago. TECHNIQUE: Imaging protocol: Computed tomography of the abdomen and pelvis with intravenous contrast. Radiation optimization: All CT scans at this facility use at least one of these dose optimization techniques: automated exposure control; mA and/or kV adjustment per patient size (includes targeted exams where dose is matched to clinical indication); or iterative reconstruction. Contrast material: OMNIPAQUE 350; Contrast volume: 100 ml; Contrast route: INTRAVENOUS (IV); COMPARISON: CT ABD PELVIS WITH CONTRAST 04/05/2017 13:19 FINDINGS: Mediastinal space: Hiatal hernia. Liver: Normal. No mass. Gallbladder and bile ducts: Normal. No calcified stones. No ductal dilation. Pancreas: Normal. No ductal dilation. Spleen: Normal. No splenomegaly. Adrenals: Normal. No mass. Kidneys and ureters: Stable hepatic cysts the the cortical scarring posterior superior aspect left kidney. Stomach and bowel: Unremarkable. No obstruction. No mucosal thickening. Appendix: No evidence of appendicitis. Intraperitoneal space: Unremarkable. No free air. No significant fluid collection. Vasculature: Unremarkable. No abdominal aortic aneurysm. Lymph nodes: Inguinal adenopathy. Bladder: Contracted urinary bladder with thickened wall. Reproductive: Unremarkable as visualized. Bones/joints: Multilevel degenerative scoliotic changes of the thoracic and lumbar spine. Osteoarthritic degenerative changes of the right and left hip. Soft tissues: Umbilical hernia with omental fat. Metallic clip in the soft tissues of the perineum. IMPRESSION: No acute findings. Dictated and Authenticated by: Lyric Vazquez MD. Ordering:MARCELINA Mae MD
[2020-05-03] MEDS: cefTRIAXone 1 GM/50 ML BAG IVPB (18:14)
== END 2020-05-03 19:15 | disposition home or self-care (01) ==
PROVIDERS: Emergency Medicine; Emergency Provider Nurse Practitioner Acute Care; PCP Nurse Practitioner
DX: N10 Acute pyelonephritis (principal); R11.2 Nausea with vomiting, unspecified; Z87.442 Personal history of urinary calculi
CPT/HCPCS: 36415; 80048; 96361; 96365; 96375; 99285; 74177; 81003; 81015; 85025; J0696; J1885; J2405; J3490

== ENCOUNTER 2020-05-05 12:30 | Outpatient (REF) | payer BC, MEDICAID, SELFPAY | END 2020-05-05 12:50 | LOC: LBN 12:30 | PROVIDERS: PCP Nurse Practitioner; Visit Provider Nurse Practitioner | DX: R10.9 Unspecified abdominal pain (principal); R82.998 Other abnormal findings in urine | CPT/HCPCS: 87086 ==

== ENCOUNTER 2020-05-12 01:07 | Outpatient (CLI) | payer BC, MEDICAID, SELFPAY ==
--- NOTE | 2020-05-12 07:44 | DI.MAMMO_ITS ---
EXAM: MG MAMMO SCREENING 60 MIN DUR CLINICAL HISTORY: screening, implants TECHNIQUE: Mammograms were interpreted according to the usual protocol including computer analysis w SeeJay CAD system, tomosynthesis and C-view imaging. COMPARISON: FINDINGS: The breasts are moderate density with mammary implants bilaterally. No mass or clumped microcalcific ation identified in either breast. No gross interval change appearance comparison with prior studies including November 2016. IMPRESSION: No specific evidence of malignancy at this time. Routine screening examinations are suggested at yea rly intervals due to the family history of breast carcinoma. BI-RADS Cat 1 - Negative Breast Density - Category B - Scattered areas of fibroglandular density
== END 2020-05-12 01:27 ==
PROVIDERS: PCP Nurse Practitioner; Visit Provider Nurse Practitioner
DX: Z12.31 Encounter for screening mammogram for malignant neoplasm of breast (principal); Z80.3 Family history of malignant neoplasm of breast; Z98.82 Breast implant status
CPT/HCPCS: 77063; 77067

== ENCOUNTER 2020-08-14 01:52 | Outpatient (CLI) | payer MEDICAID, SELFPAY ==
[2020-08-14 09:23] LABS: Calculated LDL 101 mg/dL (<100); Cholesterol 185 mg/dL (<200); HDL Cholesterol 54 mg/dL (40-60); Triglyceride 150 mg/dL (<150); Vitamin B12 239 pg/mL (193-986)
== END 2020-08-14 02:12 ==
PROVIDERS: PCP Nurse Practitioner; Visit Provider Nurse Practitioner
DX: R53.83 Other fatigue (principal); L94.0 Localized scleroderma [morphea]; Z87.2 Personal history of diseases of the skin and subcutaneous tissue
CPT/HCPCS: 36415; 80061; 82607